=== PATIENT | female | born 1940 | race Caucasian/White ===

== ENCOUNTER 2017-11-17 19:26 | Emergency (ER) | payer MEDICARE, OTHER ==
[~2017-11-17] VITALS: Ht 165.1 cm; Wt 65.8 kg
[~2017-11-17 19:26] MED LIST: ALBU18HF2 INH; ALBU2.5V13 NEB; AMLO2.5T2 PO; GABA-532 PO; HCTZ25T PO; LEVO50TA PO; MOME13HF INH; MORP-64 PO; TRAZ-143 PO
[2017-11-17 19:39] VITALS: BP 135/79
== END 2017-11-17 22:05 | disposition left against medical advice (07) ==
LOC: ER 19:26
DX: R10.9 Unspecified abdominal pain (principal); Z53.21 Procedure and treatment not carried out due to patient leaving prior to being seen by health care provider

== ENCOUNTER 2018-06-17 23:01 | Emergency (ER) | payer MEDICARE, OTHER ==
[~2018-06-17] VITALS: Ht 160 cm; Wt 71.0 kg
[~2018-06-17 23:01] MED LIST changes: -TRAZ-143 PO; +TRAZ-218 PO
[2018-06-17 23:38] LABS: BASOPHILS % (AUTO) 0.6 % (0-1); EOSINOPHILS # (AUTO) 0.1 X10'3 (0-0.9); EOSINOPHILS % (AUTO) 2.1 % (0-6); HEMATOCRIT 39.9 % (35.0-45.0); HEMOGLOBIN 13.5 g/dl (12.0-16.0); LYMPHOCYTES # (AUTO) 2.4 X10'3 (1.1-4.8); LYMPHOCYTES % (AUTO) 37.5 % (21-51); MEAN CORPUSCULAR HEMOGLOBIN 30.9 PG (27.0-31.0); MEAN CORPUSCULAR HGB CONC 33.7 % (33.0-36.5); MEAN CORPUSCULAR VOLUME 91.7 FL (78-98); MEAN PLATELET VOLUME 8.8 FL (7.4-10.4); MONOCYTES # (AUTO) 0.5 X10'3 (0-0.9); MONOCYTES % (AUTO) 8.2 % (2-12); NEUTROPHILS # (AUTO) 3.3 X10'3 (1.8-7.7); NEUTROPHILS % (AUTO) 51.6 % (42-75); PLATELET COUNT 216 X10'3 (140-440); RED BLOOD COUNT 4.35 X10'6 (4.20-5.60); WHITE BLOOD COUNT 6.4 X10'3 (4.5-11.0)
[2018-06-17 23:53] LABS: PARTIAL THROMBOPLASTIN TIME 27 SECONDS (22-32)
[2018-06-17 23:56] LABS: ALBUMIN 3.8 G/DL (3.4-5.0); ALKALINE PHOSPHATASE 68 IU/L (46-116); ANION GAP 6 (8-16); ASPARTATE AMINO TRANSFERASE 14 U/L (10-37); BILIRUBIN,TOTAL 0.2 MG/DL (0.1-1.0); BLOOD UREA NITROGEN 18 MG/DL (7-18); BUN/CREATININE RATIO 28.1 (6.6-38.0); CALCIUM 9.6 MG/DL (8.5-10.1); CHLORIDE 104 MMOL/L (99-107); CREATININE 0.64 MG/DL (0.40-0.90); GLUCOSE 103 MG/DL (70-104); POTASSIUM 3.1 MMOL/L (3.5-5.1); SODIUM 143 MMOL/L (135-145); TOTAL CARBON DIOXIDE 33.2 MMOL/L (24-32); TOTAL PROTEIN 7.7 G/DL (6.4-8.2); eGFR 90 ML/MIN
[2018-06-17 23:57] LABS: ALANINE AMINOTRANSFERASE 21 U/L (12-78)
[2018-06-18 00:47] VITALS: BP 137/74
[2018-06-18] MEDS ORDERED: ALBU6.7H INH (01:34)
[2018-06-18] MEDS ORDERED: dexamethasone 4mg tablet PO ONE (01:35)
[2018-06-18] MEDS ORDERED: albuterol 2.5 MG/3 ML nebule NEB ONE (01:35)
[2018-06-18] MEDS ORDERED: diphenhydrAMINE 25 MG/10 ML UD oral solution PO ONE (01:40)
== END 2018-06-18 02:03 | disposition home or self-care (01) ==
LOC: ER 23:02
DX: J45.909 Unspecified asthma, uncomplicated (principal); I10 Essential (primary) hypertension; K21.9 Gastro-esophageal reflux disease without esophagitis; Z85.3 Personal history of malignant neoplasm of breast; Z90.710 Acquired absence of both cervix and uterus; Z98.890 Other specified postprocedural states; Z88.1 Allergy status to other antibiotic agents; Z88.8 Allergy status to other drugs, medicaments and biological substances; Z91.040 Latex allergy status; Z91.048 Other nonmedicinal substance allergy status; Z79.899 Other long term (current) drug therapy
CPT/HCPCS: 36415; 71045; 80053; 84484; 85025; 85610; 85730; 93005; 94640; 94760; 99284; J8540; Q0163

== ENCOUNTER 2018-09-23 12:48 | Emergency (ER) | payer MEDICARE, OTHER ==
[~2018-09-23] VITALS: Ht 165.1 cm; Wt 76.4 kg
[~2018-09-23 12:48] MED LIST changes: +ALBU6.7H INH
[2018-09-23 12:55] VITALS: BP 123/66
--- NOTE | 2018-09-23 13:08 | NUR ---
patient to the bathroom.
[2018-09-23 13:29] LABS: CLARITY,URINE CLEAR (Clear); COLOR,URINE YELLOW (Yellow); GLUCOSE, URINE NEGATIVE (Neg); KETONES,URINE NEGATIVE (Neg); LEUKOCYTE ESTERASE ,URINE NEGATIVE (Neg); NITRITES, URINE NEGATIVE (Neg); OCCULT BLOOD,URINE SMALL (Neg); PH,URINE 5.5 (4.8-8.0); PROTEIN,URINE NEGATIVE (Neg); UROBILINOGEN,URINE 0.2 E.U/dL (0.2-1.0)
[2018-09-23 13:34] LABS: SQUAMOUS EPITHELIAL CELL,UR FEW /LPF (FEW); UA COLLECTION TYPE CLN CATCH MIDSTREAM
[2018-09-23 13:35] LABS: BACTERIA,URINE FEW /HPF (Neg); WBC,URINE 0-4 /HPF (0-4)
[2018-09-23 13:37] LABS: BASOPHILS % (AUTO) 0.9 % (0-1); EOSINOPHILS # (AUTO) 0.1 X10'3 (0-0.9); EOSINOPHILS % (AUTO) 1.5 % (0-6); HEMATOCRIT 39.2 % (35.0-45.0); HEMOGLOBIN 13.5 g/dl (12.0-16.0); LYMPHOCYTES # (AUTO) 1.9 X10'3 (1.1-4.8); LYMPHOCYTES % (AUTO) 34.9 % (21-51); MEAN CORPUSCULAR HEMOGLOBIN 31.8 PG (27.0-31.0); MEAN CORPUSCULAR HGB CONC 34.6 g/dL (33.0-36.5); MEAN CORPUSCULAR VOLUME 91.9 FL (78-98); MEAN PLATELET VOLUME 8.4 FL (7.4-10.4); MONOCYTES # (AUTO) 0.4 X10'3 (0-0.9); MONOCYTES % (AUTO) 8.2 % (2-12); NEUTROPHILS % (AUTO) 54.5 % (42-75); PLATELET COUNT 264 X10'3 (140-440); RED BLOOD COUNT 4.26 X10'6 (4.20-5.60); RED CELL DISTRIBUTION WIDTH 12.7 % (11.5-14.5); WHITE BLOOD COUNT 5.5 X10'3 (4.5-11.0)
[2018-09-23 13:51] LABS: INR 0.9 INR; PROTHROMBIN TIME 9.6 SECONDS (9.0-12.0)
[2018-09-23 13:52] LABS: ALANINE AMINOTRANSFERASE 25 U/L (12-78); ALBUMIN 3.5 G/DL (3.4-5.0); ALBUMIN/GLOBULIN RATIO 0.9 (1.1-1.5); ALKALINE PHOSPHATASE 72 IU/L (46-116); ANION GAP 6 (8-16); ASPARTATE AMINO TRANSFERASE 18 U/L (10-37); BILIRUBIN,TOTAL 0.3 MG/DL (0.1-1.0); BLOOD UREA NITROGEN 14 MG/DL (7-18); BUN/CREATININE RATIO 25.5 (6.6-38.0); CHLORIDE 107 MMOL/L (99-107); CREATININE 0.55 MG/DL (0.40-0.90); GLUCOSE 100 MG/DL (70-104); POTASSIUM 3.6 MMOL/L (3.5-5.1); SODIUM 141 MMOL/L (135-145); TOTAL CARBON DIOXIDE 28.4 MMOL/L (24-32); TOTAL PROTEIN 7.6 G/DL (6.4-8.2); eGFR > 90 ML/MIN
[2018-09-23 14:00] LABS: AMYLASE 48 U/L (25-115); LIPASE 168 U/L (73-393)
[2018-09-23] MEDS ORDERED: diphenhydrAMINE 50 mg/ml inj IV ONE (14:30)
[2018-09-23] MEDS ORDERED: proCHLORperazine 10 MG/2 ml inj IV ONE (14:30)
[2018-09-23] MEDS ORDERED: ketorolac tromethamine 15mg/ml inj. IV ONE (14:45)
[2018-09-23] MEDS ORDERED: IBUP-1984 PO (14:51)
== END 2018-09-23 15:25 | disposition home or self-care (01) ==
LOC: ER 12:49
DX: R10.814 Left lower quadrant abdominal tenderness (principal); I10 Essential (primary) hypertension; K21.9 Gastro-esophageal reflux disease without esophagitis; J45.909 Unspecified asthma, uncomplicated; Z88.1 Allergy status to other antibiotic agents; Z88.8 Allergy status to other drugs, medicaments and biological substances; Z88.6 Allergy status to analgesic agent; Z91.040 Latex allergy status; Z79.899 Other long term (current) drug therapy; Z90.710 Acquired absence of both cervix and uterus
CPT/HCPCS: 36415; 71045; 74176; 80053; 81001; 82150; 83690; 83880; 84484; 85025; 85610; 93005; 96374; 96375; 99284; J0780; J1200; J1885

== ENCOUNTER 2019-08-04 21:20 | Inpatient (IN) | payer MEDICARE, OTHER ==
[~2019-08-04] VITALS: Ht 160 cm; Wt 80.0 kg
[~2019-08-04 21:20] MED LIST changes: -ALBU6.7H INH; +ALBU6.7H9 INH; -MORP-64 PO; +MORP-92 PO; -TRAZ-218 PO; +TRAZ-251 PO
[2019-08-04] MEDS ORDERED: normal saline 1000ML IV soln IVB ONE ×2 (21:35→22:15)
[2019-08-04 22:07] LABS: BASOPHILS % (AUTO) 0.6 % (0-1); EOSINOPHILS # (AUTO) 0.1 X10'3 (0-0.9); EOSINOPHILS % (AUTO) 1.8 % (0-6); HEMATOCRIT 35.7 % (35.0-45.0); HEMOGLOBIN 12.4 g/dl (12.0-16.0); LYMPHOCYTES # (AUTO) 2.5 X10'3 (1.1-4.8); LYMPHOCYTES % (AUTO) 34.7 % (21-51); MEAN CORPUSCULAR HEMOGLOBIN 32.1 PG (27.0-31.0); MEAN CORPUSCULAR HGB CONC 34.7 g/dL (33.0-36.5); MEAN CORPUSCULAR VOLUME 92.5 FL (78-98); MEAN PLATELET VOLUME 9.2 FL (7.4-10.4); MONOCYTES # (AUTO) 0.4 X10'3 (0-0.9); MONOCYTES % (AUTO) 5.6 % (2-12); NEUTROPHILS # (AUTO) 4.1 X10'3 (1.8-7.7); NEUTROPHILS % (AUTO) 57.3 % (42-75); PLATELET COUNT 218 X10'3 (140-440); RED BLOOD COUNT 3.86 X10'6 (4.20-5.60); RED CELL DISTRIBUTION WIDTH 13.9 % (11.5-14.5); WHITE BLOOD COUNT 7.1 X10'3 (4.5-11.0)
[2019-08-04] MEDS ORDERED: normal saline 1000ml 1,000 ML IVB ONE (22:07)
--- NOTE | 2019-08-04 22:08 | NUR ---
PT HAD GOTTEN BACK FROM CT AND HER BP DECREASED SO A MANUAL BP DONE DR NEGRETE INFORMED AND HE STATED TO GIVE HER A LITER OF FLUIDS. SO ORDERED.
[2019-08-04 22:22] LABS: ALANINE AMINOTRANSFERASE 29 U/L (12-78); ALBUMIN 3.6 G/DL (3.4-5.0); ALBUMIN/GLOBULIN RATIO 1.1 (1.1-1.5); ALKALINE PHOSPHATASE 67 IU/L (46-116); ANION GAP 8 (8-16); ASPARTATE AMINO TRANSFERASE 21 U/L (10-37); BILIRUBIN,TOTAL 0.3 MG/DL (0.1-1.0); BLOOD UREA NITROGEN 23 MG/DL (7-18); BUN/CREATININE RATIO 20.2 (6.6-38.0); CALCIUM 8.8 MG/DL (8.5-10.1); CHLORIDE 105 MMOL/L (99-107); CREATININE 1.14 MG/DL (0.40-0.90); GLUCOSE 108 MG/DL (70-104); POTASSIUM 3.4 MMOL/L (3.5-5.1); SODIUM 140 MMOL/L (135-145); TOTAL CARBON DIOXIDE 26.9 MMOL/L (24-32); TOTAL PROTEIN 6.8 G/DL (6.4-8.2); eGFR 46 ML/MIN
[2019-08-04] MEDS ORDERED: LACT10SO57 PO (23:01)
[2019-08-04] MEDS ORDERED: FLUO10CA28 PO (23:01)
[2019-08-04] MEDS ORDERED: GABA-532 PO (23:01)
[2019-08-04] MEDS ORDERED: OMEP-50 PO (23:01)
[2019-08-04 23:08] LABS: CLARITY,URINE CLEAR (Clear); COLOR,URINE YELLOW (Yellow); GLUCOSE, URINE NEGATIVE (Neg); KETONES,URINE NEGATIVE (Neg); LEUKOCYTE ESTERASE ,URINE NEGATIVE (Neg); NITRITES, URINE NEGATIVE (Neg); OCCULT BLOOD,URINE TRACE-INTACT (Neg); PROTEIN,URINE NEGATIVE (Neg); UROBILINOGEN,URINE 0.2 E.U/dL (0.2-1.0)
[2019-08-04 23:23] LABS: UA COLLECTION TYPE STRAIGHT CATH
[2019-08-04 23:24] LABS: BACTERIA,URINE FEW /HPF (Neg); SQUAMOUS EPITHELIAL CELL,UR FEW /LPF (FEW); WBC,URINE NONE SEEN /HPF (0-4)
[2019-08-05] MEDS ORDERED: albuterol 2.5 MG/3 ML nebule NEB PRN (01:35)
--- NOTE | 2019-08-05 01:50 | NUR ---
I took report from Rachid CASIANO from the ER and will give report to Rachid CASIANO on Ortho who will be taking care of patient on the Ortho floor.
[2019-08-05 02:30] VITALS: BP 105/63
[2019-08-05] MEDS: oxyCODONE/APAP 5-325mg tablet PO PRN ×3 (02:57→19:32)
[2019-08-05] MEDS: normal saline 1000ml 1,000 ML IV SCH ×3 (02:58→21:28)
[2019-08-05] MEDS: albuterol 2.5 MG/3 ML nebule NEB SCH ×4 (03:02→21:00)
[2019-08-05] MEDS ORDERED: potassium Cl 20 mEq SR tablet PO PRN (04:50)
[2019-08-05] MEDS ORDERED: potassium CL 10mEq/100ml bag 100 ML IV PRN (04:50)
[2019-08-05] MEDS: K and/or MAG REPLACEMENT MC SCH ×3 (04:50→20:00)
[2019-08-05 05:09] LABS: POTASSIUM 3.9 MMOL/L (3.5-5.1)
[2019-08-05 06:00] VITALS: BP 101/53
[2019-08-05] MEDS: pantoprazole 40mg Tablet.DR PO SCH (08:46)
[2019-08-05] MEDS: levoTHYROXINE 25mcg tablet PO SCH (08:47)
[2019-08-05] MEDS: FLUoxetine 10mg capsule PO SCH (08:47)
[2019-08-05] MEDS: budesonide 0.5mg/2ml UD nebule IH SCH ×2 (09:48→21:00)
[2019-08-05 10:00] VITALS: BP 133/60
[2019-08-05] MEDS: CefTRIAXone 2gm/D5W 50ml 50 ML IV SCH (15:36)
[2019-08-05 18:00] VITALS: BP 118/56
--- NOTE | 2019-08-05 18:38 | NUR ---
Problems reprioritized. Patient report given, questions answered & plan of care reviewed with Winsome.
[2019-08-05] MEDS: docusate sod 100mg capsule PO SCH (19:33)
[2019-08-05 22:00] VITALS: BP 141/82
[2019-08-06] MEDS: oxyCODONE/APAP 5-325mg tablet PO PRN ×4 (01:23→22:30)
[2019-08-06] MEDS: albuterol 2.5 MG/3 ML nebule NEB SCH ×4 (02:09→21:01)
[2019-08-06 06:00] VITALS: BP 147/80
[2019-08-06 06:39] LABS: BASOPHILS % (AUTO) 0.5 % (0-1); EOSINOPHILS # (AUTO) 0.1 X10'3 (0-0.9); EOSINOPHILS % (AUTO) 2.1 % (0-6); LYMPHOCYTES # (AUTO) 2.4 X10'3 (1.1-4.8); LYMPHOCYTES % (AUTO) 33.5 % (21-51); MEAN CORPUSCULAR HEMOGLOBIN 31.6 PG (27.0-31.0); MEAN CORPUSCULAR HGB CONC 34.4 g/dL (33.0-36.5); MEAN CORPUSCULAR VOLUME 91.8 FL (78-98); MEAN PLATELET VOLUME 9.1 FL (7.4-10.4); MONOCYTES # (AUTO) 0.5 X10'3 (0-0.9); MONOCYTES % (AUTO) 7.3 % (2-12); NEUTROPHILS % (AUTO) 56.6 % (42-75); PLATELET COUNT 182 X10'3 (140-440); RED BLOOD COUNT 3.81 X10'6 (4.20-5.60); WHITE BLOOD COUNT 7.1 X10'3 (4.5-11.0)
[2019-08-06 06:55] LABS: ALANINE AMINOTRANSFERASE 25 U/L (12-78); ALBUMIN 3.1 G/DL (3.4-5.0); ALKALINE PHOSPHATASE 60 IU/L (46-116); ANION GAP 9 (8-16); ASPARTATE AMINO TRANSFERASE 17 U/L (10-37); BILIRUBIN,TOTAL 0.3 MG/DL (0.1-1.0); BLOOD UREA NITROGEN 6 MG/DL (7-18); BUN/CREATININE RATIO 11.3 (6.6-38.0); CALCIUM 8.4 MG/DL (8.5-10.1); CHLORIDE 109 MMOL/L (99-107); CREATININE 0.53 MG/DL (0.40-0.90); GLUCOSE 90 MG/DL (70-104); SODIUM 144 MMOL/L (135-145); TOTAL CARBON DIOXIDE 25.8 MMOL/L (24-32); TOTAL PROTEIN 6.3 G/DL (6.4-8.2); eGFR > 90 ML/MIN
[2019-08-06 07:23] LABS: POTASSIUM 2.9 MMOL/L (3.5-5.1)
[2019-08-06] MEDS: budesonide 0.5mg/2ml UD nebule IH SCH ×2 (08:00→21:01)
[2019-08-06] MEDS: K and/or MAG REPLACEMENT MC SCH ×2 (08:00→20:00)
[2019-08-06] MEDS: ondansetron/PF 4mg/2ml inj IV PRN ×2 (08:12→18:50)
[2019-08-06] MEDS: normal saline 1000ml 1,000 ML IV SCH ×3 (08:13→18:50)
[2019-08-06] MEDS: docusate sod 100mg capsule PO SCH ×2 (08:14→19:15)
[2019-08-06] MEDS: CefTRIAXone 2gm/D5W 50ml 50 ML IV SCH (08:14)
[2019-08-06] MEDS: pantoprazole 40mg Tablet.DR PO SCH (08:15)
[2019-08-06] MEDS: levoTHYROXINE 25mcg tablet PO SCH (08:15)
[2019-08-06] MEDS: FLUoxetine 10mg capsule PO SCH (08:15)
[2019-08-06] MEDS: potassium Cl 20 mEq SR tablet PO PRN ×3 (08:21→18:49)
[2019-08-06 10:00] VITALS: BP 166/77
[2019-08-06] MEDS: acetaminophen 325mg tablet PO PRN (15:38)
[2019-08-06 18:00] VITALS: BP 141/67
--- NOTE | 2019-08-06 18:05 | NUR ---
Received patient report from STEPHENIE Thomas. Assumed patient care.
[2019-08-06] MEDS: lactobacillus rhamnosus 10,000 MMU CELLS/CAPSULE PO SCH (19:15)
[2019-08-06 22:00] VITALS: BP 132/56
[2019-08-07] MEDS: acetaminophen 325mg tablet PO PRN ×3 (00:20→19:52)
[2019-08-07] MEDS: albuterol 2.5 MG/3 ML nebule NEB SCH ×4 (03:00→19:59)
[2019-08-07] MEDS: normal saline 1000ml 1,000 ML IV SCH ×2 (04:00→15:55)
[2019-08-07] MEDS: oxyCODONE/APAP 5-325mg tablet PO PRN ×4 (04:38→22:34)
[2019-08-07 06:00] VITALS: BP 135/64
--- NOTE | 2019-08-07 06:09 | NUR ---
Patient report given, questions answered and plan of care reviewed with STEPHENIE Tucker.
[2019-08-07 06:23] LABS: BASOPHILS % (AUTO) 0.5 % (0-1); EOSINOPHILS # (AUTO) 0.2 X10'3 (0-0.9); EOSINOPHILS % (AUTO) 2.9 % (0-6); HEMATOCRIT 35.6 % (35.0-45.0); HEMOGLOBIN 12.1 g/dl (12.0-16.0); LYMPHOCYTES # (AUTO) 1.9 X10'3 (1.1-4.8); MEAN CORPUSCULAR HEMOGLOBIN 31.6 PG (27.0-31.0); MEAN CORPUSCULAR HGB CONC 34.1 g/dL (33.0-36.5); MEAN CORPUSCULAR VOLUME 92.7 FL (78-98); MEAN PLATELET VOLUME 9.2 FL (7.4-10.4); MONOCYTES # (AUTO) 0.4 X10'3 (0-0.9); MONOCYTES % (AUTO) 7.1 % (2-12); NEUTROPHILS # (AUTO) 3.6 X10'3 (1.8-7.7); NEUTROPHILS % (AUTO) 58.5 % (42-75); PLATELET COUNT 190 X10'3 (140-440); RED BLOOD COUNT 3.83 X10'6 (4.20-5.60); RED CELL DISTRIBUTION WIDTH 13.7 % (11.5-14.5); WHITE BLOOD COUNT 6.1 X10'3 (4.5-11.0)
[2019-08-07 06:40] LABS: ALANINE AMINOTRANSFERASE 26 U/L (12-78); ALBUMIN 3.1 G/DL (3.4-5.0); ALBUMIN/GLOBULIN RATIO 0.9 (1.1-1.5); ALKALINE PHOSPHATASE 62 IU/L (46-116); ANION GAP 8 (8-16); ASPARTATE AMINO TRANSFERASE 15 U/L (10-37); BILIRUBIN,TOTAL 0.4 MG/DL (0.1-1.0); BLOOD UREA NITROGEN 6 MG/DL (7-18); BUN/CREATININE RATIO 9.7 (6.6-38.0); CALCIUM 8.6 MG/DL (8.5-10.1); CHLORIDE 108 MMOL/L (99-107); CREATININE 0.62 MG/DL (0.40-0.90); GLUCOSE 99 MG/DL (70-104); POTASSIUM 3.6 MMOL/L (3.5-5.1); SODIUM 143 MMOL/L (135-145); TOTAL CARBON DIOXIDE 27.1 MMOL/L (24-32); TOTAL PROTEIN 6.6 G/DL (6.4-8.2); eGFR > 90 ML/MIN
[2019-08-07] MEDS: CefTRIAXone 2gm/D5W 50ml 50 ML IV SCH (07:53)
[2019-08-07] MEDS: levoTHYROXINE 25mcg tablet PO SCH (07:55)
[2019-08-07] MEDS: lactobacillus rhamnosus 10,000 MMU CELLS/CAPSULE PO SCH ×2 (07:55→19:49)
[2019-08-07] MEDS: FLUoxetine 10mg capsule PO SCH (07:55)
[2019-08-07] MEDS: docusate sod 100mg capsule PO SCH ×2 (07:55→19:49)
[2019-08-07] MEDS: pantoprazole 40mg Tablet.DR PO SCH (07:56)
[2019-08-07] MEDS: K and/or MAG REPLACEMENT MC SCH ×2 (08:00→20:00)
[2019-08-07] MEDS: budesonide 0.5mg/2ml UD nebule IH SCH ×2 (08:50→19:59)
[2019-08-07 10:12] VITALS: BP 140/65
--- NOTE | 2019-08-07 13:10 | NUR ---
EVEN THOUGH HER PAIN WAS A 6-7 SHE ONLY WANTED TYLENOL.
[2019-08-07 18:00] VITALS: BP 151/77
--- NOTE | 2019-08-07 18:00 | NUR ---
Received patient report from STEPHENIE Tucker. Assumed patient care.
[2019-08-07 22:00] VITALS: BP 120/60
[2019-08-08] MEDS: albuterol 2.5 MG/3 ML nebule NEB SCH ×2 (03:00→09:35)
[2019-08-08] MEDS: acetaminophen 325mg tablet PO PRN (03:02)
[2019-08-08] MEDS: oxyCODONE/APAP 5-325mg tablet PO PRN ×2 (05:19→12:47)
[2019-08-08 05:50] VITALS: BP 152/76
--- NOTE | 2019-08-08 06:01 | NUR ---
Patient report given, questions answered and plan of care reviewed with STEPHENIE Tucker.
[2019-08-08 06:10] LABS: BASOPHILS % (AUTO) 0.7 % (0-1); EOSINOPHILS # (AUTO) 0.2 X10'3 (0-0.9); EOSINOPHILS % (AUTO) 2.3 % (0-6); HEMATOCRIT 35.9 % (35.0-45.0); HEMOGLOBIN 12.4 g/dl (12.0-16.0); LYMPHOCYTES # (AUTO) 2.2 X10'3 (1.1-4.8); LYMPHOCYTES % (AUTO) 32.2 % (21-51); MEAN CORPUSCULAR HEMOGLOBIN 31.8 PG (27.0-31.0); MEAN CORPUSCULAR HGB CONC 34.4 g/dL (33.0-36.5); MEAN CORPUSCULAR VOLUME 92.5 FL (78-98); MONOCYTES # (AUTO) 0.5 X10'3 (0-0.9); MONOCYTES % (AUTO) 6.8 % (2-12); PLATELET COUNT 196 X10'3 (140-440); RED BLOOD COUNT 3.88 X10'6 (4.20-5.60); RED CELL DISTRIBUTION WIDTH 13.7 % (11.5-14.5); WHITE BLOOD COUNT 6.9 X10'3 (4.5-11.0)
[2019-08-08 06:38] LABS: ALANINE AMINOTRANSFERASE 29 U/L (12-78); ALBUMIN 3.2 G/DL (3.4-5.0); ALBUMIN/GLOBULIN RATIO 0.9 (1.1-1.5); ALKALINE PHOSPHATASE 63 IU/L (46-116); ANION GAP 6 (8-16); ASPARTATE AMINO TRANSFERASE 17 U/L (10-37); BILIRUBIN,TOTAL 0.5 MG/DL (0.1-1.0); BLOOD UREA NITROGEN 8 MG/DL (7-18); BUN/CREATININE RATIO 13.1 (6.6-38.0); CHLORIDE 108 MMOL/L (99-107); CREATININE 0.61 MG/DL (0.40-0.90); GLUCOSE 100 MG/DL (70-104); POTASSIUM 3.8 MMOL/L (3.5-5.1); SODIUM 142 MMOL/L (135-145); TOTAL CARBON DIOXIDE 28.4 MMOL/L (24-32); TOTAL PROTEIN 6.8 G/DL (6.4-8.2); eGFR > 90 ML/MIN
[2019-08-08] MEDS: K and/or MAG REPLACEMENT MC SCH (07:25)
[2019-08-08] MEDS: CefTRIAXone 2gm/D5W 50ml 50 ML IV SCH (08:23)
[2019-08-08] MEDS: pantoprazole 40mg Tablet.DR PO SCH (08:24)
[2019-08-08] MEDS: FLUoxetine 10mg capsule PO SCH (08:24)
[2019-08-08] MEDS: docusate sod 100mg capsule PO SCH (08:24)
[2019-08-08] MEDS: lactobacillus rhamnosus 10,000 MMU CELLS/CAPSULE PO SCH (08:24)
[2019-08-08] MEDS: levoTHYROXINE 25mcg tablet PO SCH (08:24)
[2019-08-08] MEDS: normal saline 1000ml 1,000 ML IV SCH (08:24)
[2019-08-08] MEDS: budesonide 0.5mg/2ml UD nebule IH SCH (09:36)
[2019-08-08 09:57] VITALS: BP 142/67
--- NOTE | 2019-08-08 10:53 | NUR ---
pt very concerned about her BP this AM with systolic 155. Pt states "it hasn't been that high in years. I'm usually in the 110's. I'm not taking my BP meds." Educated pt on why she is not receiving her BP meds now d/t hypotension. Pt also in 03/03 pain when BP elevated. Once Percocet started working SBP decreased to 140's. Dr. Cook aware and stated pt to be d/c'd today.
[2019-08-08] MEDS ORDERED: LEVO750T21 PO (12:38)
--- NOTE | 2019-08-10 09:44 | NUR ---
Case management DC follow up: spoke to pt via telephone: Pt states she is doing great today. Denies dizziness, LUND, emergent pain, cp, SOB, NV at this time. verbalizes understands of medications and why prescribed, all needs met, questions answered at DC. [facility] will be at pt home at 1100 to assess needs, Pt called PCP/Dr Hitchcock to give update, and they will retrieve records. Pt does not have follow up appt yet, acknowledges that a follow up is necessary. No further questions at this time.
== END 2019-08-08 13:35 | disposition home health service (06) | DRG 88 ==
LOC: ER 21:21 → ED HOLD 08-05 01:28 → ORTHO 4S 08-05 02:10
PROVIDERS: ADMIT Internal Medicine; ATTEND Family Medicine
DX: S06.0X1A Concussion with loss of consciousness of 30 minutes or less, initial encounter (principal); G92 Toxic encephalopathy; R78.81 Bacteremia; S00.83XA Contusion of other part of head, initial encounter; R55 Syncope and collapse; I95.9 Hypotension, unspecified; M79.7 Fibromyalgia; I10 Essential (primary) hypertension; E87.6 Hypokalemia; E03.9 Hypothyroidism, unspecified; G89.4 Chronic pain syndrome; J45.909 Unspecified asthma, uncomplicated; Z90.710 Acquired absence of both cervix and uterus; Z85.3 Personal history of malignant neoplasm of breast; Z88.8 Allergy status to other drugs, medicaments and biological substances; W18.39XA Other fall on same level, initial encounter; Y93.89 Activity, other specified; Y92.89 Other specified places as the place of occurrence of the external cause; Y99.8 Other external cause status; X58.XXXA Exposure to other specified factors, initial encounter
CPT/HCPCS: 36415; 70450; 71045; 80053; 81001; 83605; 83735; 83880; 84132; 84145; 84443; 84484; 85025; 87040; 87077; 87081; 87186; 93005; 94640; 94760; 96360; 99285; G0378; J0696; J2405; J7030; J7626

== ENCOUNTER 2020-06-03 01:32 | Inpatient (IN) | payer MEDICARE, OTHER ==
[~2020-06-03] VITALS: Ht 165.1 cm; Wt 68.0 kg
[~2020-06-03 01:32] MED LIST changes: -ALBU2.5V13 NEB; -ALBU6.7H9 INH; -AMLO2.5T2 PO; +LACT10SO57 PO; -MORP-92 PO; +OMEP-50 PO; -TRAZ-251 PO
[2020-06-03] MEDS ORDERED: ondansetron/PF 4mg/2ml inj IV ONE (01:35)
[2020-06-03] MEDS ORDERED: normal saline 1000ML IV soln IVB ONE (01:35)
--- NOTE | 2020-06-03 01:42 | NUR ---
ETOH use in the last 24 hours cant remember. Reports Kahlua and coffee
[2020-06-03] MEDS: morphine 4 MG/ML inj SYRINge IV PRN ×3 (01:56→05:53)
--- NOTE | 2020-06-03 02:00 | NUR ---
To CT via [facility]
[2020-06-03 02:07] LABS: BASOPHILS % (AUTO) 0.1 % (0-1); EOSINOPHILS % (AUTO) 0 % (0-6); HEMATOCRIT 39.9 % (35.0-45.0); HEMOGLOBIN 13.4 g/dl (12.0-16.0); LYMPHOCYTES % (AUTO) 6.5 % (21-51); MEAN CORPUSCULAR HEMOGLOBIN 31.7 PG (27.0-31.0); MEAN CORPUSCULAR HGB CONC 33.5 g/dL (33.0-36.5); MEAN CORPUSCULAR VOLUME 94.7 FL (78-98); MEAN PLATELET VOLUME 8.7 FL (7.4-10.4); MONOCYTES # (AUTO) 0.6 X10'3 (0-0.9); MONOCYTES % (AUTO) 3.7 % (2-12); NEUTROPHILS % (AUTO) 89.7 % (42-75); PLATELET COUNT 215 X10'3 (140-440); RED BLOOD COUNT 4.22 X10'6 (4.20-5.60); RED CELL DISTRIBUTION WIDTH 13.5 % (11.5-14.5); WHITE BLOOD COUNT 15.6 X10'3 (4.5-11.0)
[2020-06-03 02:23] LABS: ALANINE AMINOTRANSFERASE 18 U/L (12-78); ALBUMIN 4.4 G/DL (3.4-5.0); ALKALINE PHOSPHATASE 72 IU/L (46-116); ANION GAP 12 (8-16); ASPARTATE AMINO TRANSFERASE 17 U/L (10-37); BILIRUBIN,TOTAL 0.6 MG/DL (0.1-1.0); BLOOD UREA NITROGEN 18 MG/DL (7-18); BUN/CREATININE RATIO 25.4 (6.6-38.0); CALCIUM 9.4 MG/DL (8.5-10.1); CHLORIDE 102 MMOL/L (99-107); CREATININE 0.71 MG/DL (0.40-0.90); GLUCOSE 168 MG/DL (70-104); LIPASE 96 U/L (73-393); SODIUM 137 MMOL/L (135-145); TOTAL CARBON DIOXIDE 23.1 MMOL/L (24-32); TOTAL PROTEIN 8.7 G/DL (6.4-8.2); eGFR 80 ML/MIN
--- NOTE | 2020-06-03 02:24 | NUR ---
Venessa acosta in [facility] - 06/03/20 at 0224 by JEANNE taxi called for transport to [place] ETA 30 minutes
[2020-06-03 02:33] LABS: POTASSIUM 2.6 MMOL/L (3.5-5.1)
[2020-06-03] MEDS ORDERED: HYDR-3965 PO (02:35)
[2020-06-03] MEDS ORDERED: NAPR-56 PO (02:35)
[2020-06-03] MEDS ORDERED: VALS160T30 PO (02:35)
[2020-06-03] MEDS ORDERED: SYN0.088T PO (02:35)
--- NOTE | 2020-06-03 02:35 | NUR ---
reports fibromyalgia pain
[2020-06-03] MEDS ORDERED: potassium Cl 20 mEq SR tablet PO ONE (02:40)
[2020-06-03] MEDS ORDERED: CefTRIAXone 2gm/D5W 50ml BAG 50 ML IV ONE (02:40)
[2020-06-03] MEDS ORDERED: normal saline 1000ML IV soln IV ONE (02:40)
[2020-06-03] MEDS: magnesium 2GM in 50ml NS 50 ML IV SCH ×2 (03:00→04:50)
[2020-06-03 03:20] LABS: CLARITY,URINE CLEAR (Clear); COLOR,URINE YELLOW (Yellow); GLUCOSE, URINE 100 mg/dl (Neg); KETONES,URINE 15 mg/dl (Neg); LEUKOCYTE ESTERASE ,URINE NEGATIVE (Neg); NITRITES, URINE NEGATIVE (Neg); OCCULT BLOOD,URINE MODERATE (Neg); PH,URINE 7.5 (4.8-8.0); PROTEIN,URINE 100 mg/dl (Neg); UROBILINOGEN,URINE 0.2 E.U/dL (0.2-1.0)
[2020-06-03 03:26] LABS: UA COLLECTION TYPE VOIDED
[2020-06-03 03:29] LABS: BACTERIA,URINE 1+ /HPF (Neg); MUCUS STRANDS FEW /LPF (Neg); RBC,URINE 20-50 /HPF (0-2); SQUAMOUS EPITHELIAL CELL,UR FEW /LPF (FEW); WBC,URINE 0-4 /HPF (0-4)
--- NOTE | 2020-06-03 05:03 | NUR ---
UP TO BEDSIDE COMMODE
[2020-06-03] MEDS ORDERED: magnesium 4gm in 100ml NS 100 ML IV PRN (05:35)
[2020-06-03] MEDS ORDERED: potassium CL 10mEq/100ml bag 100 ML IV PRN ×2 (05:35)
[2020-06-03] MEDS ORDERED: potassium Cl 20 mEq SR tablet PO PRN (05:35)
[2020-06-03] MEDS ORDERED: magnesium 2GM in 50ml NS 50 ML IV PRN (05:35)
[2020-06-03] MEDS ORDERED: magnesium Cl slow-release 64mg tablet PO PRN (05:35)
[2020-06-03] MEDS ORDERED: mag hydrox/Alum hydrox/simeth 30ml oral suspension PO PRN (05:35)
[2020-06-03] MEDS ORDERED: HYDROmorphone inj. 0.5 MG/0.5 ML DISP.SYRIN IV PRN ×2 (05:35→14:05)
[2020-06-03] MEDS ORDERED: magnesium hydroxide 30ml (MOM) UD suspension PO PRN (05:35)
[2020-06-03] MEDS ORDERED: acetaminophen 325mg tablet PO PRN ×2 (05:35)
[2020-06-03] MEDS ORDERED: ondansetron/PF 4mg/2ml inj IV PRN (05:35)
[2020-06-03] MEDS: potassium Cl 20mEq in NS 1,000 ML IV SCH ×2 (05:54→15:45)
[2020-06-03] MEDS ORDERED: albuterol 2.5 MG/3 ML nebule NEB PRN (06:10)
--- NOTE | 2020-06-03 06:25 | NUR ---
MEDICATIONS TO PHARMACY
[2020-06-03] MEDS: budesonide 0.5mg/2ml UD nebule IH SCH ×2 (07:10→20:40)
[2020-06-03] MEDS: albuterol 2.5 MG/3 ML nebule NEB SCH ×2 (07:10→20:41)
[2020-06-03] MEDS: pantoprazole 40mg Tablet.DR PO SCH (07:29)
[2020-06-03] MEDS: levoTHYROXINE 25mcg tablet PO SCH (07:30)
[2020-06-03] MEDS: K and/or MAG REPLACEMENT MC SCH ×2 (08:00→19:45)
[2020-06-03] MEDS ORDERED: levoTHYROXINE 88mcg tablet PO SCH (08:00)
[2020-06-03] MEDS ORDERED: non-formulary drug (Mometasone/Formoterol (Dulera 200 Mcg/5 Mcg Inhaler) 2 PUFFS) INH SCH (08:00)
[2020-06-03] MEDS: HYDROchlorothiazide 12.5mg capsule PO SCH (08:00)
[2020-06-03] MEDS ORDERED: iohexol 300mg/ml 100ml inj. ONE (09:00)
--- NOTE | 2020-06-03 09:58 | NUR ---
DAUGHTER FLORECITA YANDEL [phone]
[2020-06-03] MEDS: HYDROcodone/acetaminophen 10/325mg tab PO PRN ×3 (10:07→23:03)
[2020-06-03] MEDS: losartan 50mg tablet PO SCH (10:09)
[2020-06-03] MEDS: gabapentin 300mg capsule PO SCH ×3 (10:11→21:00)
[2020-06-03] MEDS: heparin, porcine 5000 units/ml vial SQ SCH ×2 (10:12→19:44)
--- NOTE | 2020-06-03 10:13 | NUR ---
CALLED ER FOR REPORT/ CHARGE STATES NURSE IN WITH PT GIVING MEDS, SHE WILL CALL ME BACK.
[2020-06-03] MEDS: piperacillin/tazo 3.375gm/50ml 50 ML IV SCH ×3 (10:18→23:23)
[2020-06-03 11:00] VITALS: BP 161/84
--- NOTE | 2020-06-03 13:59 | NUR ---
POTASSIUM REPLAEMENT DONE IN ER. ORDERED STAT RECHECK. WAITING FOR RESULTS
[2020-06-03] MEDS: HYDROmorphone inj. 0.5 MG/0.5 ML DISP.SYRIN IV PRN ×2 (14:56→19:44)
--- NOTE | 2020-06-03 14:59 | NUR ---
HAVING TROUBLE MANAGING PT'S PAIN. SHE STATES SHE TAKES 3-4 NORCO EVERYDAY. GAVE DILAUDID 1MG
[2020-06-03 15:00] VITALS: BP 138/73
--- NOTE | 2020-06-03 15:52 | NUR ---
WENT TO [facility], ABX NOT AVAILABLE WILL CHECK QWITH PHARMACY. MAY BE HUNG LATE
[2020-06-03 18:00] VITALS: BP 169/94
--- NOTE | 2020-06-03 18:15 | NUR ---
RECEIVED REPORT FROM SHEA CASIANO AND ASSUMED PATIENT CARE
--- NOTE | 2020-06-03 18:19 | NUR ---
Problems reprioritized. Patient report given, questions answered & plan of care reviewed with JANIE CASIANO.
--- NOTE | 2020-06-03 19:09 | NUR ---
REPORT GIVEN TO MERCEDES CASIANO
--- NOTE | 2020-06-03 19:18 | NUR ---
Patient in room PCU 3017. I have received report from Vero CASIANO and had the opportunity to ask questions and assume patient care.
[2020-06-03] MEDS: lactobacillus rhamnosus 10,000 MMU CELLS/CAPSULE PO SCH (19:45)
[2020-06-03] MEDS ORDERED: temazepam 15mg capsule PO PRN (21:00)
[2020-06-04 00:03] VITALS: BP 184/74
[2020-06-04] MEDS: hydrALAZINE 20mg/ml inj. IV PRN (00:15)
[2020-06-04] MEDS: HYDROmorphone inj. 0.5 MG/0.5 ML DISP.SYRIN IV PRN ×5 (00:32→22:30)
[2020-06-04 01:48] VITALS: BP 172/82
[2020-06-04] MEDS: albuterol 2.5 MG/3 ML nebule NEB SCH ×4 (02:58→20:40)
[2020-06-04] MEDS: potassium Cl 20mEq in NS 1,000 ML IV SCH ×3 (03:01→14:19)
[2020-06-04 06:00] VITALS: BP 172/89
[2020-06-04 06:00] LABS: BASOPHILS % (AUTO) 0.1 % (0-1); EOSINOPHILS % (AUTO) 0 % (0-6); HEMATOCRIT 37.8 % (35.0-45.0); HEMOGLOBIN 13.1 g/dl (12.0-16.0); LYMPHOCYTES # (AUTO) 1.4 X10'3 (1.1-4.8); LYMPHOCYTES % (AUTO) 8.1 % (21-51); MEAN CORPUSCULAR HEMOGLOBIN 32.7 PG (27.0-31.0); MEAN CORPUSCULAR HGB CONC 34.7 g/dL (33.0-36.5); MEAN CORPUSCULAR VOLUME 94.3 FL (78-98); MEAN PLATELET VOLUME 9.1 FL (7.4-10.4); MONOCYTES # (AUTO) 1.4 X10'3 (0-0.9); NEUTROPHILS # (AUTO) 14.2 X10'3 (1.8-7.7); NEUTROPHILS % (AUTO) 83.8 % (42-75); PLATELET COUNT 269 X10'3 (140-440); RED BLOOD COUNT 4.01 X10'6 (4.20-5.60); RED CELL DISTRIBUTION WIDTH 13.6 % (11.5-14.5)
[2020-06-04 06:02] LABS: ALANINE AMINOTRANSFERASE 20 U/L (12-78); ALBUMIN 3.9 G/DL (3.4-5.0); ALBUMIN/GLOBULIN RATIO 0.9 (1.1-1.5); ALKALINE PHOSPHATASE 63 IU/L (46-116); ANION GAP 14 (8-16); ASPARTATE AMINO TRANSFERASE 18 U/L (10-37); BLOOD UREA NITROGEN 11 MG/DL (7-18); BUN/CREATININE RATIO 16.7 (6.6-38.0); CHLORIDE 105 MMOL/L (99-107); CREATININE 0.66 MG/DL (0.40-0.90); GLUCOSE 162 MG/DL (70-104); SODIUM 141 MMOL/L (135-145); TOTAL CARBON DIOXIDE 22.3 MMOL/L (24-32); TOTAL PROTEIN 8.2 G/DL (6.4-8.2); eGFR 87 ML/MIN
[2020-06-04 06:06] LABS: POTASSIUM 2.9 MMOL/L (3.5-5.1)
--- NOTE | 2020-06-04 06:16 | NUR ---
Problems reprioritized. Patient report given, questions answered & plan of care reviewed with Bettina CASIANO.
--- NOTE | 2020-06-04 06:28 | NUR ---
Patient in room PCU 3017. I have received report from Madison and had the opportunity to ask questions and assume patient care.
[2020-06-04] MEDS: HYDROcodone/acetaminophen 10/325mg tab PO PRN ×3 (07:14→18:59)
[2020-06-04] MEDS: potassium Cl 20 mEq SR tablet PO PRN ×2 (07:18→19:05)
[2020-06-04] MEDS: gabapentin 300mg capsule PO SCH ×3 (07:19→22:30)
[2020-06-04] MEDS: levoTHYROXINE 25mcg tablet PO SCH (07:20)
[2020-06-04] MEDS: HYDROchlorothiazide 12.5mg capsule PO SCH (07:21)
[2020-06-04] MEDS: losartan 50mg tablet PO SCH (07:21)
[2020-06-04] MEDS: lactobacillus rhamnosus 10,000 MMU CELLS/CAPSULE PO SCH ×2 (07:21→18:59)
[2020-06-04] MEDS: piperacillin/tazo 3.375gm/50ml 50 ML IV SCH ×2 (07:22→16:22)
[2020-06-04] MEDS: pantoprazole 40mg Tablet.DR PO SCH (07:22)
[2020-06-04] MEDS: heparin, porcine 5000 units/ml vial SQ SCH ×2 (07:29→18:59)
[2020-06-04] MEDS: K and/or MAG REPLACEMENT MC SCH ×2 (07:30→18:58)
[2020-06-04] MEDS: budesonide 0.5mg/2ml UD nebule IH SCH ×2 (08:00→20:40)
[2020-06-04 10:00] VITALS: BP 117/50
--- NOTE | 2020-06-04 10:39 | NUR ---
Patients was pacing side to side saying the norco wasn't helping her. I waited two hours after giving norco to see if there were some relief after no relief was achieved I gave pt dilaudid 1mg and Hr came down patient now more comfortable. Patient neighbor made comment that she makes more noise when people are around to get more pain meds. Will continue to monitor.
--- NOTE | 2020-06-04 12:49 | NUR ---
Page Sent promotional table spacer PAGER ID: [phone] MESSAGE: [phone] Luzmaria Raymond Patient seems to be going in and out of afib. When she sits up her heart rate goes up to 140 then when she lays it goes back down to 102. #[phone] Bettina
--- NOTE | 2020-06-04 13:49 | NUR ---
promotional table spacer promotional table spacer Page Sent promotional table spacer PAGER ID: [phone] MESSAGE: [id number] Lia Pt came up from ED on Heparin. Pharmacy wants my heparin drip stopped now that order is over 12 hours. Please call #[phone] Bettina Addendum: 06/04/20 at 1349 by Zachary Gann RN WRONG PT
[2020-06-04] MEDS ORDERED: diphenhydrAMINE 25mg capsule PO PRN (14:00)
[2020-06-04 17:32] VITALS: BP 104/54
--- NOTE | 2020-06-04 18:25 | NUR ---
Problems reprioritized. Patient report given, questions answered & plan of care reviewed with Vero.
[2020-06-04 22:00] VITALS: BP 136/90
[2020-06-05] MEDS: piperacillin/tazo 3.375gm/50ml 50 ML IV SCH ×4 (00:07→23:26)
[2020-06-05] MEDS: potassium Cl 20 mEq SR tablet PO PRN (00:07)
[2020-06-05] MEDS: HYDROcodone/acetaminophen 10/325mg tab PO PRN ×4 (00:07→21:41)
[2020-06-05] MEDS: potassium Cl 20mEq in NS 1,000 ML IV SCH ×3 (00:48→23:28)
[2020-06-05 02:00] VITALS: BP 136/86
[2020-06-05] MEDS: HYDROmorphone inj. 0.5 MG/0.5 ML DISP.SYRIN IV PRN ×3 (02:32→19:03)
[2020-06-05] MEDS: albuterol 2.5 MG/3 ML nebule NEB SCH ×4 (03:04→21:11)
--- NOTE | 2020-06-05 06:20 | NUR ---
Problems reprioritized. Patient report given, questions answered & plan of care reviewed with Roro CASIANO.
--- NOTE | 2020-06-05 06:33 | NUR ---
Patient in room PCU 3017. I have received report from STEPHENIE Pham and had the opportunity to ask questions and assume patient care. Pt awake at change of shift, resting comfortably.
[2020-06-05 07:00] VITALS: BP 122/73
[2020-06-05 07:43] LABS: BASOPHILS % (AUTO) 0.2 % (0-1); EOSINOPHILS % (AUTO) 0 % (0-6); HEMATOCRIT 40.9 % (35.0-45.0); HEMOGLOBIN 13.8 g/dl (12.0-16.0); LYMPHOCYTES # (AUTO) 2.1 X10'3 (1.1-4.8); LYMPHOCYTES % (AUTO) 11.9 % (21-51); MEAN CORPUSCULAR HGB CONC 33.7 g/dL (33.0-36.5); MEAN PLATELET VOLUME 9.2 FL (7.4-10.4); MONOCYTES # (AUTO) 1.5 X10'3 (0-0.9); MONOCYTES % (AUTO) 8.3 % (2-12); NEUTROPHILS # (AUTO) 13.9 X10'3 (1.8-7.7); NEUTROPHILS % (AUTO) 79.6 % (42-75); PLATELET COUNT 243 X10'3 (140-440); RED CELL DISTRIBUTION WIDTH 13.5 % (11.5-14.5); WHITE BLOOD COUNT 17.5 X10'3 (4.5-11.0)
[2020-06-05 07:53] LABS: ALANINE AMINOTRANSFERASE 20 U/L (12-78); ALBUMIN 3.2 G/DL (3.4-5.0); ALBUMIN/GLOBULIN RATIO 0.8 (1.1-1.5); ALKALINE PHOSPHATASE 62 IU/L (46-116); ANION GAP 10 (8-16); ASPARTATE AMINO TRANSFERASE 23 U/L (10-37); BILIRUBIN,TOTAL 0.7 MG/DL (0.1-1.0); BLOOD UREA NITROGEN 14 MG/DL (7-18); BUN/CREATININE RATIO 26.4 (6.6-38.0); CALCIUM 9.3 MG/DL (8.5-10.1); CHLORIDE 110 MMOL/L (99-107); CREATININE 0.53 MG/DL (0.40-0.90); GLUCOSE 129 MG/DL (70-104); LIPASE 75 U/L (73-393); MAGNESIUM 2.1 MG/DL (1.5-2.4); POTASSIUM 3.7 MMOL/L (3.5-5.1); SODIUM 145 MMOL/L (135-145); TOTAL CARBON DIOXIDE 25.1 MMOL/L (24-32); TOTAL PROTEIN 7.3 G/DL (6.4-8.2); eGFR > 90 ML/MIN
[2020-06-05] MEDS: budesonide 0.5mg/2ml UD nebule IH SCH ×2 (08:00→21:11)
[2020-06-05] MEDS: K and/or MAG REPLACEMENT MC SCH ×2 (08:00→18:47)
[2020-06-05] MEDS: HYDROchlorothiazide 12.5mg capsule PO SCH (08:46)
[2020-06-05] MEDS: gabapentin 300mg capsule PO SCH ×3 (08:47→21:41)
[2020-06-05] MEDS: lactobacillus rhamnosus 10,000 MMU CELLS/CAPSULE PO SCH ×2 (08:47→21:41)
[2020-06-05] MEDS: heparin, porcine 5000 units/ml vial SQ SCH ×2 (08:48→19:00)
[2020-06-05] MEDS: losartan 50mg tablet PO SCH (08:49)
[2020-06-05] MEDS: levoTHYROXINE 25mcg tablet PO SCH (08:50)
[2020-06-05] MEDS: pantoprazole 40mg Tablet.DR PO SCH (08:50)
[2020-06-05 11:00] VITALS: BP 155/82
--- NOTE | 2020-06-05 11:06 | NUR ---
0900 SVN treatment triaged
--- NOTE | 2020-06-05 13:00 | NUR ---
Discontinued patient's catheter with no complications, will continue to monitor and encourage pt to void QH.
[2020-06-05 15:00] VITALS: BP 130/75
[2020-06-05 18:15] VITALS: BP 166/80
--- NOTE | 2020-06-05 18:25 | NUR ---
Problems reprioritized. Patient report given, questions answered & plan of care reviewed with STEPHENIE Best. Pt sitting up in bed, resting comfortably. Informed NOC nurse to monitor patient's heart rate closely, and to inform Dr Garcia of any drastic changes. Dr Flores to do possible cardioversion tomorrow if heart rate is continuing to be unstable. Addendum: 06/05/20 at 1829 by Roro Yu RN Charted end of shift report on wrong patient.
--- NOTE | 2020-06-05 18:35 | NUR ---
Problems reprioritized. Patient report given, questions answered & plan of care reviewed with STEPHENIE Guidry. Pt resting at change of shift. All patient needs met at this time.
--- NOTE | 2020-06-05 18:43 | NUR ---
Patient in room PCU 3017. I have received report from Roro Reynolds RN and had the opportunity to ask questions and assume patient care.
[2020-06-05 23:39] VITALS: BP 143/71
[2020-06-06] MEDS: HYDROcodone/acetaminophen 10/325mg tab PO PRN ×3 (02:48→22:49)
[2020-06-06 02:51] VITALS: BP 135/69
[2020-06-06] MEDS: HYDROmorphone inj. 0.5 MG/0.5 ML DISP.SYRIN IV PRN ×2 (04:46→08:50)
[2020-06-06 06:22] LABS: BASOPHILS % (AUTO) 0.3 % (0-1); EOSINOPHILS % (AUTO) 0.1 % (0-6); HEMATOCRIT 35.7 % (35.0-45.0); LYMPHOCYTES # (AUTO) 1.8 X10'3 (1.1-4.8); LYMPHOCYTES % (AUTO) 14.3 % (21-51); MEAN CORPUSCULAR HEMOGLOBIN 31.8 PG (27.0-31.0); MEAN CORPUSCULAR HGB CONC 33.7 g/dL (33.0-36.5); MEAN CORPUSCULAR VOLUME 94.3 FL (78-98); MEAN PLATELET VOLUME 8.9 FL (7.4-10.4); MONOCYTES # (AUTO) 1.2 X10'3 (0-0.9); MONOCYTES % (AUTO) 9.8 % (2-12); NEUTROPHILS # (AUTO) 9.3 X10'3 (1.8-7.7); NEUTROPHILS % (AUTO) 75.5 % (42-75); PLATELET COUNT 196 X10'3 (140-440); RED BLOOD COUNT 3.78 X10'6 (4.20-5.60); RED CELL DISTRIBUTION WIDTH 13.5 % (11.5-14.5); WHITE BLOOD COUNT 12.4 X10'3 (4.5-11.0)
--- NOTE | 2020-06-06 06:24 | NUR ---
Problems reprioritized. Patient report given, questions answered & plan of care reviewed with STEPHENIE Lagos.
[2020-06-06 06:29] LABS: PARTIAL THROMBOPLASTIN TIME 26 SECONDS (22-32)
[2020-06-06 06:34] LABS: CHLORIDE 105 MMOL/L (99-107); POTASSIUM 3.1 MMOL/L (3.5-5.1); SODIUM 140 MMOL/L (135-145)
[2020-06-06 07:02] LABS: ALANINE AMINOTRANSFERASE 21 U/L (12-78); ALBUMIN 2.8 G/DL (3.4-5.0); ALBUMIN/GLOBULIN RATIO 0.8 (1.1-1.5); ALKALINE PHOSPHATASE 54 IU/L (46-116); ANION GAP 8 (8-16); ASPARTATE AMINO TRANSFERASE 26 U/L (10-37); BILIRUBIN,TOTAL 0.9 MG/DL (0.1-1.0); BLOOD UREA NITROGEN 7 MG/DL (7-18); BUN/CREATININE RATIO 14.3 (6.6-38.0); CALCIUM 8.9 MG/DL (8.5-10.1); CREATININE 0.49 MG/DL (0.40-0.90); GLUCOSE 114 MG/DL (70-104); MAGNESIUM 1.8 MG/DL (1.5-2.4); TOTAL CARBON DIOXIDE 27.5 MMOL/L (24-32); TOTAL PROTEIN 6.5 G/DL (6.4-8.2); eGFR > 90 ML/MIN
[2020-06-06] MEDS: losartan 50mg tablet PO SCH (08:00)
[2020-06-06] MEDS: K and/or MAG REPLACEMENT MC SCH ×2 (08:00→20:00)
[2020-06-06] MEDS: heparin, porcine 5000 units/ml vial SQ SCH ×2 (08:00→20:49)
[2020-06-06] MEDS: albuterol 2.5 MG/3 ML nebule NEB SCH ×3 (08:12→21:00)
[2020-06-06] MEDS: budesonide 0.5mg/2ml UD nebule IH SCH ×2 (08:12→20:00)
[2020-06-06] MEDS: piperacillin/tazo 3.375gm/50ml 50 ML IV SCH ×2 (08:39→16:00)
[2020-06-06] MEDS: gabapentin 300mg capsule PO SCH ×3 (08:39→20:49)
[2020-06-06] MEDS: lactobacillus rhamnosus 10,000 MMU CELLS/CAPSULE PO SCH ×2 (08:40→20:51)
[2020-06-06] MEDS: HYDROchlorothiazide 12.5mg capsule PO SCH (08:41)
[2020-06-06] MEDS: pantoprazole 40mg Tablet.DR PO SCH (08:43)
[2020-06-06] MEDS: levoTHYROXINE 25mcg tablet PO SCH (08:43)
[2020-06-06 11:00] VITALS: BP 132/78
[2020-06-06] MEDS ORDERED: morphine 2 MG/ML inj. syringe IV PRN ×2 (11:05)
[2020-06-06] MEDS: potassium Cl 20mEq in NS 1,000 ML IV SCH ×2 (13:40→23:35)
[2020-06-06 15:00] VITALS: BP 144/67
[2020-06-06 17:40] LABS: GLUCOSE,CSF 9 MG/DL (40-75)
[2020-06-06 17:55] LABS: TOTAL PROTEIN,CSF > 750 MG/DL (30-60)
[2020-06-06 18:00] VITALS: BP 152/77
--- NOTE | 2020-06-06 18:31 | NUR ---
Problems reprioritized. Patient report given, questions answered & plan of care reviewed with Rikki RN.
[2020-06-06 18:36] LABS: APPEARANCE,CSF BLOODY; CSF SUPERNATANT COLOR RED; EOSINOPHILS,CSF 1 %; LYMPHOCYTES,CSF 25 % (40-80); MONOCYTES,CSF 1 % (15-45); NEUTRO,CSF 73 % (0-6)
[2020-06-06 18:37] LABS: CSF VOLUME 9 ML; TUBE# COUNTED 3
[2020-06-06 18:39] LABS: CSF RBC 1087500 /CU MM (0); CSF WBC CT 1389 /CU MM (0-5)
--- NOTE | 2020-06-06 19:02 | NUR ---
Page Sent promotional table spacer PAGER ID: [phone] MESSAGE: [id number] - Luzmaria Cartagena 79F - Pt has critically high CSF WBC's of 1389 from Lumbar tap performed today to r/o meningitis. Patient is currently laying flat with only symptom of LUND, HTN 152sbp. [phone] Rikki CASIANO Addendum: 06/07/20 at 0211 by Solitario Angulo RN @ 1905 - Placed patient on droplet isolation and gave patient a mask to wear anticipating future orders and bacterial meningitis.
--- NOTE | 2020-06-06 19:07 | NUR ---
Dr. Mendoza responded to previous page and requested I call Dr. Ambrocio first due to this being "a new diagnosis and her being unsure what to do" she stated "you could have paged 3-5 minutes ago and it would be Dr. Ambrocio" - Followed Dr. Ventura request and paged Dr. Ambrocio after 1899. Page Sent promotional table spacer PAGER ID: [phone] MESSAGE: Foreign - Luzmaria Cartagena - Pt has critically high CSF WBCs of 1389 from Lumbar tap performed today to r/o meningitis. Pt is currently laying flat with only symptom of LUND, HTN 152sbp. Dr. Mendoza desired me to page you. [phone] Rikki CASIANO Addendum: 06/06/20 at 191 by Solitario Angulo RN Dr. Ambrocio called and asked me "who is the night doctor luli" - I responded "The night doctor luli is Dr. Mendoza" Dr. Ambrocio responded with "Okay. I will get back to you" and the hung up the phone. Addendum: 06/07/20 at 0209 by Solitario Angulo RN Dr. Mendoza returned call shortly after to notify me of new orders placed after consulting Infectious DZ kynast. Pt placed on isolation and abx to be administered as ordered throughout night - will continue to monitor and perform freq neuro checks.
[2020-06-06] MEDS ORDERED: vancomycin/NS 1 GM ADD-VANTAGE 250 ML IV SCH (20:00)
[2020-06-06] MEDS: CefTRIAXone 2gm/D5W 50ml BAG 50 ML IV SCH ×3 (20:00→22:50)
[2020-06-06] MEDS: ampicillin inj 2 GM in normal saline 100ml IV soln 100 ML IV SCH ×2 (20:38→22:50)
[2020-06-06] MEDS ORDERED: potassium CL 10mEq/100ml bag 100 ML IV PRN (21:15)
[2020-06-06] MEDS ORDERED: potassium Cl 20 mEq SR tablet PO PRN (21:15)
[2020-06-06] MEDS ORDERED: magnesium Cl slow-release 64mg tablet PO PRN (21:15)
[2020-06-06] MEDS ORDERED: magnesium 4gm in 100ml NS 100 ML IV PRN (21:15)
[2020-06-06] MEDS: potassium Cl 20 mEq SR tablet PO PRN (22:48)
[2020-06-06 22:55] VITALS: BP 137/61
[2020-06-07] MEDS: ampicillin inj 2 GM in normal saline 100ml IV soln 100 ML IV SCH ×4 (01:19→19:25)
[2020-06-07] MEDS: albuterol 2.5 MG/3 ML nebule NEB SCH ×3 (03:00→20:26)
[2020-06-07] MEDS: potassium Cl 20 mEq SR tablet PO PRN ×4 (03:01→22:30)
[2020-06-07 03:03] VITALS: BP 139/67
[2020-06-07] MEDS: HYDROcodone/acetaminophen 10/325mg tab PO PRN ×4 (04:09→20:28)
--- NOTE | 2020-06-07 04:19 | NUR ---
Page Sent promotional table spacer PAGER ID: [phone] MESSAGE: [phone]- Luzmaria Cartagena 79F / Pt c/o of significant pain post [place] q4/morphine q4 - pt has hx of fibromyalgia w/ new dx of meningitis. Pt states she takes [place] 10mg x3 daily. Pt had been receiving dilaudid 1mg 06/03 - 06/06 [phone] Rikki Addendum: 06/07/20 at 0424 by Soliatrio Angulo RN Discussed pt condition w/ MD. Dr. Mendoza - ordered x1 1mg dose of Dilaudid ivp now will place order and admin.
[2020-06-07] MEDS ORDERED: HYDROmorphone 1 mg/ml syringe IV ONE (04:25)
[2020-06-07 06:30] VITALS: BP 150/69
[2020-06-07 06:40] LABS: HIV ANTIBODY 1&2 RAPID NON-REACTIVE (Neg)
--- NOTE | 2020-06-07 06:40 | NUR ---
Problems reprioritized. Patient report given, questions answered & plan of care reviewed with Yoselin CASIANO.
[2020-06-07 06:42] LABS: BASOPHILS % (AUTO) 0.1 % (0-1); EOSINOPHILS % (AUTO) 0.1 % (0-6); HEMATOCRIT 35.3 % (35.0-45.0); HEMOGLOBIN 12.4 g/dl (12.0-16.0); LYMPHOCYTES # (AUTO) 1.3 X10'3 (1.1-4.8); LYMPHOCYTES % (AUTO) 12.8 % (21-51); MEAN CORPUSCULAR HEMOGLOBIN 32.9 PG (27.0-31.0); MEAN PLATELET VOLUME 8.6 FL (7.4-10.4); MONOCYTES # (AUTO) 0.9 X10'3 (0-0.9); MONOCYTES % (AUTO) 8.7 % (2-12); NEUTROPHILS # (AUTO) 7.9 X10'3 (1.8-7.7); NEUTROPHILS % (AUTO) 78.3 % (42-75); PLATELET COUNT 206 X10'3 (140-440); RED BLOOD COUNT 3.76 X10'6 (4.20-5.60); RED CELL DISTRIBUTION WIDTH 13.2 % (11.5-14.5)
[2020-06-07 07:01] LABS: ALANINE AMINOTRANSFERASE 26 U/L (12-78); ALBUMIN 3.1 G/DL (3.4-5.0); ALBUMIN/GLOBULIN RATIO 0.8 (1.1-1.5); ALKALINE PHOSPHATASE 54 IU/L (46-116); ANION GAP 9 (8-16); ASPARTATE AMINO TRANSFERASE 22 U/L (10-37); BILIRUBIN,TOTAL 0.9 MG/DL (0.1-1.0); BLOOD UREA NITROGEN 9 MG/DL (7-18); CALCIUM 8.7 MG/DL (8.5-10.1); CHLORIDE 104 MMOL/L (99-107); CREATININE 0.53 MG/DL (0.40-0.90); GLUCOSE 121 MG/DL (70-104); MAGNESIUM 1.7 MG/DL (1.5-2.4); SODIUM 141 MMOL/L (135-145); TOTAL CARBON DIOXIDE 28.3 MMOL/L (24-32); eGFR > 90 ML/MIN
[2020-06-07 07:09] LABS: POTASSIUM 2.9 MMOL/L (3.5-5.1)
[2020-06-07] MEDS: budesonide 0.5mg/2ml UD nebule IH SCH ×2 (08:00→20:00)
[2020-06-07] MEDS: K and/or MAG REPLACEMENT MC SCH ×2 (08:00→20:00)
--- NOTE | 2020-06-07 08:19 | NUR ---
notified. PAGER ID: [phone] MESSAGE: RE: Luzmaria Cartagena. [id number]. FYI, Critical lab value for her K, 2.9. Will replace. Thanks. Yoselin Dueñas [phone].
[2020-06-07] MEDS: losartan 50mg tablet PO SCH (09:00)
[2020-06-07] MEDS: gabapentin 300mg capsule PO SCH ×3 (09:02→20:28)
[2020-06-07] MEDS: lactobacillus rhamnosus 10,000 MMU CELLS/CAPSULE PO SCH ×2 (09:02→19:25)
[2020-06-07] MEDS: pantoprazole 40mg Tablet.DR PO SCH (09:03)
[2020-06-07] MEDS: HYDROchlorothiazide 12.5mg capsule PO SCH (09:03)
[2020-06-07] MEDS: levoTHYROXINE 25mcg tablet PO SCH (09:03)
[2020-06-07] MEDS: CefTRIAXone 2gm/D5W 50ml BAG 50 ML IV SCH ×2 (09:09→20:28)
[2020-06-07] MEDS: heparin, porcine 5000 units/ml vial SQ SCH ×2 (09:15→19:25)
[2020-06-07] MEDS: potassium Cl 20mEq in NS 1,000 ML IV SCH ×2 (10:21→19:25)
[2020-06-07 11:00] VITALS: BP 167/73
[2020-06-07] MEDS: HYDROmorphone inj. 0.5 MG/0.5 ML DISP.SYRIN IV PRN ×3 (11:09→22:29)
[2020-06-07 15:00] VITALS: BP 163/83
--- NOTE | 2020-06-07 16:30 | NUR ---
While during neuro-checks, noticed that the patient had a bandage within the medial aspect of the left knee. Patient reports that she had a repair of a "leaky vein" with Dr. Minor last week. No bruising or redness to area. Dr. Ambrocio notified.
[2020-06-07 18:00] VITALS: BP 159/79
--- NOTE | 2020-06-07 18:39 | NUR ---
Problems reprioritized. Patient report given, questions answered & plan of care reviewed with STEPHENIE Ortega.
[2020-06-07 22:00] VITALS: BP 168/65
[2020-06-07] MEDS: hydrALAZINE 20mg/ml inj. IV PRN (22:52)
[2020-06-08] MEDS: vancomycin/NS 1 GM ADD-VANTAGE 250 ML IV SCH (00:25)
[2020-06-08] MEDS: HYDROcodone/acetaminophen 10/325mg tab PO PRN ×4 (01:25→23:44)
[2020-06-08 02:00] VITALS: BP 144/68
[2020-06-08] MEDS: ampicillin inj 2 GM in normal saline 100ml IV soln 100 ML IV SCH ×4 (02:49→19:19)
[2020-06-08] MEDS: albuterol 2.5 MG/3 ML nebule NEB SCH ×4 (03:00→20:00)
[2020-06-08] MEDS: HYDROmorphone inj. 0.5 MG/0.5 ML DISP.SYRIN IV PRN ×4 (03:39→21:18)
[2020-06-08] MEDS: potassium Cl 20mEq in NS 1,000 ML IV SCH ×2 (05:40→16:58)
[2020-06-08 05:50] LABS: BASOPHILS % (AUTO) 0.4 % (0-1); EOSINOPHILS % (AUTO) 0.3 % (0-6); HEMOGLOBIN 12.5 g/dl (12.0-16.0); LYMPHOCYTES # (AUTO) 1.4 X10'3 (1.1-4.8); LYMPHOCYTES % (AUTO) 13.9 % (21-51); MEAN CORPUSCULAR HEMOGLOBIN 32.5 PG (27.0-31.0); MEAN CORPUSCULAR HGB CONC 34.7 g/dL (33.0-36.5); MEAN CORPUSCULAR VOLUME 93.7 FL (78-98); MEAN PLATELET VOLUME 9.1 FL (7.4-10.4); MONOCYTES % (AUTO) 9.7 % (2-12); NEUTROPHILS # (AUTO) 7.5 X10'3 (1.8-7.7); NEUTROPHILS % (AUTO) 75.7 % (42-75); PLATELET COUNT 227 X10'3 (140-440); RED BLOOD COUNT 3.84 X10'6 (4.20-5.60); RED CELL DISTRIBUTION WIDTH 13.3 % (11.5-14.5); WHITE BLOOD COUNT 9.9 X10'3 (4.5-11.0)
[2020-06-08 05:54] LABS: ALANINE AMINOTRANSFERASE 25 U/L (12-78); ALBUMIN 3.2 G/DL (3.4-5.0); ALBUMIN/GLOBULIN RATIO 0.8 (1.1-1.5); ALKALINE PHOSPHATASE 56 IU/L (46-116); ANION GAP 10 (8-16); ASPARTATE AMINO TRANSFERASE 21 U/L (10-37); BILIRUBIN,TOTAL 0.7 MG/DL (0.1-1.0); BLOOD UREA NITROGEN 6 MG/DL (7-18); BUN/CREATININE RATIO 12.2 (6.6-38.0); CALCIUM 8.9 MG/DL (8.5-10.1); CHLORIDE 99 MMOL/L (99-107); CREATININE 0.49 MG/DL (0.40-0.90); GLUCOSE 127 MG/DL (70-104); MAGNESIUM 1.6 MG/DL (1.5-2.4); POTASSIUM 3.2 MMOL/L (3.5-5.1); SODIUM 134 MMOL/L (135-145); TOTAL CARBON DIOXIDE 25.5 MMOL/L (24-32); TOTAL PROTEIN 7.3 G/DL (6.4-8.2); eGFR > 90 ML/MIN
[2020-06-08 06:00] VITALS: BP 149/79
--- NOTE | 2020-06-08 06:31 | NUR ---
Problems reprioritized. Patient report given, questions answered & plan of care reviewed with Lena CASIANO.
[2020-06-08] MEDS: budesonide 0.5mg/2ml UD nebule IH SCH ×2 (08:09→20:00)
[2020-06-08] MEDS: losartan 50mg tablet PO SCH (08:55)
[2020-06-08] MEDS: gabapentin 300mg capsule PO SCH ×3 (08:55→21:18)
[2020-06-08] MEDS: CefTRIAXone 2gm/D5W 50ml BAG 50 ML IV SCH ×2 (08:57→20:33)
[2020-06-08] MEDS: heparin, porcine 5000 units/ml vial SQ SCH ×2 (08:58→19:20)
[2020-06-08] MEDS: HYDROchlorothiazide 12.5mg capsule PO SCH (08:59)
[2020-06-08] MEDS: levoTHYROXINE 25mcg tablet PO SCH (09:30)
[2020-06-08] MEDS: lactobacillus rhamnosus 10,000 MMU CELLS/CAPSULE PO SCH ×2 (09:30→19:20)
[2020-06-08] MEDS: pantoprazole 40mg Tablet.DR PO SCH (10:44)
[2020-06-08 11:00] VITALS: BP 166/81
[2020-06-08] MEDS: K and/or MAG REPLACEMENT MC SCH ×2 (12:13→20:24)
[2020-06-08] MEDS: hydrALAZINE 20mg/ml inj. IV PRN (12:15)
[2020-06-08 15:00] VITALS: BP 134/74
--- NOTE | 2020-06-08 17:12 | NUR ---
Initial: Pt admit DX sepsis secondary to diverticulitis, chronic pain syndrome, and bacterial meningitis per MD note. Mild acute diverticulitis w/ moderate diverticulosis of sigmoid and descending colon present per CT note. Pt had abdominal pain w/ vomiting on admit resolved since 06/05 per EMR. PO 75% avg clear liquid diet first 2 days and first full liquid meal 06/06 now down to 25% recent meals. RD recommends ensure enlive TIDWM for additional kcal/protein needs; MD notified. Pt receiving HCTZ and electrolyte replacements per protocol. LBM 06/03 receiving dilaudid; RD d/w RN regarding routine bowel care if MD agreeable since none yet this admit. Will monitor for PO diet tolerance, advancement, and ONS acceptance. Rec: 1. advance diet as medically indicated to low-residue 2. ensure enlive TIDWM; encourage PO 3. routine bowel care; consider opioid antagonist since receiving dilaudid 4. weekly wts Addendum: 06/08/20 at [address] Amended: Links added.
[2020-06-08 18:00] VITALS: BP 152/67
[2020-06-08] MEDS ORDERED: lactose-reduced food (Ensure Enlive) - 237ml bottle PO SCH (18:00)
--- NOTE | 2020-06-08 18:14 | NUR ---
Patient in room PCU 3017. I have received report from Lena CASIANO and had the opportunity to ask questions and assume patient care.
--- NOTE | 2020-06-08 19:38 | NUR ---
Problems reprioritized. Patient report given, questions answered & plan of care reviewed with
[2020-06-08 22:00] VITALS: BP 154/75
[2020-06-09] VITALS (9 sets, daily range): BP systolic 121–171; BP diastolic 62–82
[2020-06-09] MEDS: vancomycin/NS 1 GM ADD-VANTAGE 250 ML IV SCH (00:18)
[2020-06-09] MEDS: ampicillin inj 2 GM in normal saline 100ml IV soln 100 ML IV SCH ×4 (02:09→20:22)
[2020-06-09] MEDS: albuterol 2.5 MG/3 ML nebule NEB SCH ×3 (03:00→20:16)
[2020-06-09] MEDS: potassium Cl 20mEq in NS 1,000 ML IV SCH ×3 (03:46→23:27)
[2020-06-09] MEDS: HYDROmorphone inj. 0.5 MG/0.5 ML DISP.SYRIN IV PRN (03:47)
--- NOTE | 2020-06-09 06:08 | NUR ---
Problems reprioritized. Patient report given, questions answered & plan of care reviewed with Lani CASIANO.
[2020-06-09] MEDS: hydrALAZINE 20mg/ml inj. IV PRN ×2 (06:21→13:26)
[2020-06-09 06:22] LABS: BASOPHILS % (AUTO) 0.2 % (0-1); EOSINOPHILS # (AUTO) 0.1 X10'3 (0-0.9); EOSINOPHILS % (AUTO) 0.6 % (0-6); HEMATOCRIT 36.6 % (35.0-45.0); HEMOGLOBIN 12.9 g/dl (12.0-16.0); LYMPHOCYTES # (AUTO) 1.2 X10'3 (1.1-4.8); LYMPHOCYTES % (AUTO) 11.6 % (21-51); MEAN CORPUSCULAR HEMOGLOBIN 32.7 PG (27.0-31.0); MEAN CORPUSCULAR HGB CONC 35.1 g/dL (33.0-36.5); MEAN CORPUSCULAR VOLUME 93.3 FL (78-98); MEAN PLATELET VOLUME 8.6 FL (7.4-10.4); MONOCYTES # (AUTO) 0.9 X10'3 (0-0.9); MONOCYTES % (AUTO) 8.3 % (2-12); NEUTROPHILS # (AUTO) 8.3 X10'3 (1.8-7.7); NEUTROPHILS % (AUTO) 79.3 % (42-75); PLATELET COUNT 257 X10'3 (140-440); RED BLOOD COUNT 3.93 X10'6 (4.20-5.60); RED CELL DISTRIBUTION WIDTH 13.2 % (11.5-14.5); WHITE BLOOD COUNT 10.5 X10'3 (4.5-11.0)
[2020-06-09 06:24] LABS: ALANINE AMINOTRANSFERASE 26 U/L (12-78); ALBUMIN 3.3 G/DL (3.4-5.0); ALBUMIN/GLOBULIN RATIO 0.7 (1.1-1.5); ALKALINE PHOSPHATASE 61 IU/L (46-116); ANION GAP 12 (8-16); ASPARTATE AMINO TRANSFERASE 16 U/L (10-37); BILIRUBIN,TOTAL 0.8 MG/DL (0.1-1.0); BLOOD UREA NITROGEN 5 MG/DL (7-18); CALCIUM 9.2 MG/DL (8.5-10.1); CHLORIDE 98 MMOL/L (99-107); GLUCOSE 123 MG/DL (70-104); MAGNESIUM 1.6 MG/DL (1.5-2.4); SODIUM 137 MMOL/L (135-145); TOTAL CARBON DIOXIDE 27.1 MMOL/L (24-32); TOTAL PROTEIN 7.8 G/DL (6.4-8.2); eGFR > 90 ML/MIN
[2020-06-09 06:27] LABS: POTASSIUM 2.7 MMOL/L (3.5-5.1)
--- NOTE | 2020-06-09 06:35 | NUR ---
Critical K+ of 2.7, Dr. Hammonds notified, orders to follow protocol.
--- NOTE | 2020-06-09 06:38 | NUR ---
Patient in room PCU 3017. I have received report from Jordan CASIANO and had the opportunity to ask questions and assume patient care.
[2020-06-09] MEDS: levoTHYROXINE 25mcg tablet PO SCH (07:39)
[2020-06-09] MEDS: HYDROchlorothiazide 12.5mg capsule PO SCH (07:39)
[2020-06-09] MEDS: gabapentin 300mg capsule PO SCH ×3 (07:39→20:27)
[2020-06-09] MEDS: HYDROcodone/acetaminophen 10/325mg tab PO PRN ×4 (07:39→20:40)
[2020-06-09] MEDS: lactobacillus rhamnosus 10,000 MMU CELLS/CAPSULE PO SCH ×2 (07:39→20:24)
[2020-06-09] MEDS: losartan 50mg tablet PO SCH (07:39)
[2020-06-09] MEDS: heparin, porcine 5000 units/ml vial SQ SCH ×2 (07:40→20:26)
[2020-06-09] MEDS: pantoprazole 40mg Tablet.DR PO SCH (07:40)
[2020-06-09] MEDS: potassium Cl 20 mEq SR tablet PO PRN ×3 (07:40→16:40)
[2020-06-09] MEDS: CefTRIAXone 2gm/D5W 50ml BAG 50 ML IV SCH ×2 (07:41→21:13)
[2020-06-09] MEDS: budesonide 0.5mg/2ml UD nebule IH SCH ×2 (08:00→20:00)
[2020-06-09] MEDS: K and/or MAG REPLACEMENT MC SCH ×2 (08:30→20:00)
--- NOTE | 2020-06-09 18:38 | NUR ---
Problems reprioritized. Patient report given, questions answered & plan of care reviewed with Mireille CASIANO. Pt. offers no complaints, eating dinner and watching t.v.
--- NOTE | 2020-06-09 18:40 | NUR ---
Problems reprioritized. Patient report given, questions answered & plan of care reviewed with Mireille CASIANO. Pt. offers no complaints, resting quietly.
--- NOTE | 2020-06-09 18:42 | NUR ---
I have received report from Lani CASIANO and had the opportunity to ask questions and assume patient care.
[2020-06-09] MEDS ORDERED: VANCOMYCIN LEVEL IV ONE (19:30)
[2020-06-09 19:43] LABS: POTASSIUM 3.4 MMOL/L (3.5-5.1); VANCOMYCIN,TROUGH 3.3 UG/ML (6.0-14.0)
[2020-06-10] MEDS: HYDROcodone/acetaminophen 10/325mg tab PO PRN ×4 (00:46→12:58)
[2020-06-10 02:00] VITALS: BP 149/76
[2020-06-10] MEDS: ampicillin inj 2 GM in normal saline 100ml IV soln 100 ML IV SCH ×4 (02:14→23:43)
[2020-06-10] MEDS: albuterol 2.5 MG/3 ML nebule NEB SCH ×4 (02:35→20:03)
[2020-06-10 06:08] LABS: MAGNESIUM 1.7 MG/DL (1.5-2.4); POTASSIUM 3.1 MMOL/L (3.5-5.1)
--- NOTE | 2020-06-10 06:20 | NUR ---
Problems reprioritized. Patient report given, questions answered & plan of care reviewed with Jory CASIANO. Addendum: 06/10/20 at 0620 by Mireille Johnson RN Problems reprioritized. Patient report given, questions answered & plan of care reviewed with Lani CASIANO.
--- NOTE | 2020-06-10 06:29 | NUR ---
Patient in room PCU 3017. I have received report from STEPHENIE Kendrick and had the opportunity to ask questions and assume patient care.
[2020-06-10 07:00] VITALS: BP 153/63
[2020-06-10] MEDS: budesonide 0.5mg/2ml UD nebule IH SCH ×2 (07:37→20:03)
[2020-06-10] MEDS: K and/or MAG REPLACEMENT MC SCH ×3 (08:00→23:36)
[2020-06-10 09:03] LABS: BASOPHILS % (AUTO) 0.2 % (0-1); EOSINOPHILS % (AUTO) 0.4 % (0-6); HEMATOCRIT 37.6 % (35.0-45.0); HEMOGLOBIN 12.8 g/dl (12.0-16.0); LYMPHOCYTES # (AUTO) 1.2 X10'3 (1.1-4.8); MEAN CORPUSCULAR HEMOGLOBIN 32.2 PG (27.0-31.0); MEAN CORPUSCULAR HGB CONC 34.1 g/dL (33.0-36.5); MEAN CORPUSCULAR VOLUME 94.5 FL (78-98); MEAN PLATELET VOLUME 8.8 FL (7.4-10.4); MONOCYTES # (AUTO) 0.8 X10'3 (0-0.9); NEUTROPHILS # (AUTO) 8.8 X10'3 (1.8-7.7); NEUTROPHILS % (AUTO) 81.4 % (42-75); PLATELET COUNT 284 X10'3 (140-440); RED BLOOD COUNT 3.98 X10'6 (4.20-5.60); RED CELL DISTRIBUTION WIDTH 13.4 % (11.5-14.5); WHITE BLOOD COUNT 10.8 X10'3 (4.5-11.0)
[2020-06-10] MEDS: lactobacillus rhamnosus 10,000 MMU CELLS/CAPSULE PO SCH ×2 (09:06→09:24)
[2020-06-10] MEDS: losartan 50mg tablet PO SCH ×2 (09:11→09:27)
[2020-06-10] MEDS: HYDROchlorothiazide 12.5mg capsule PO SCH ×2 (09:11→09:26)
[2020-06-10] MEDS: levoTHYROXINE 25mcg tablet PO SCH ×2 (09:11→09:25)
[2020-06-10] MEDS: gabapentin 300mg capsule PO SCH ×3 (09:12→21:37)
[2020-06-10] MEDS: heparin, porcine 5000 units/ml vial SQ SCH ×2 (09:17→21:36)
[2020-06-10 09:20] LABS: ALANINE AMINOTRANSFERASE 26 U/L (12-78); ALBUMIN 3.3 G/DL (3.4-5.0); ALBUMIN/GLOBULIN RATIO 0.7 (1.1-1.5); ALKALINE PHOSPHATASE 61 IU/L (46-116); ANION GAP 12 (8-16); ASPARTATE AMINO TRANSFERASE 16 U/L (10-37); BILIRUBIN,TOTAL 0.7 MG/DL (0.1-1.0); BLOOD UREA NITROGEN 5 MG/DL (7-18); BUN/CREATININE RATIO 10.4 (6.6-38.0); CALCIUM 9.2 MG/DL (8.5-10.1); CHLORIDE 99 MMOL/L (99-107); CREATININE 0.48 MG/DL (0.40-0.90); GLUCOSE 138 MG/DL (70-104); POTASSIUM 3.1 MMOL/L (3.5-5.1); SODIUM 134 MMOL/L (135-145); TOTAL CARBON DIOXIDE 23.3 MMOL/L (24-32); TOTAL PROTEIN 7.8 G/DL (6.4-8.2); eGFR > 90 ML/MIN
[2020-06-10] MEDS: pantoprazole 40mg Tablet.DR PO SCH (09:30)
[2020-06-10] MEDS ORDERED: magnesium Cl slow-release 64mg tablet PO PRN (09:35)
[2020-06-10] MEDS ORDERED: potassium CL 10mEq/100ml bag 100 ML IV PRN (09:35)
[2020-06-10] MEDS ORDERED: magnesium 4gm in 100ml NS 100 ML IV PRN (09:35)
[2020-06-10] MEDS: potassium Cl 20 mEq SR tablet PO PRN ×2 (09:40→14:20)
[2020-06-10 11:00] VITALS: BP 147/62
[2020-06-10] MEDS: CefTRIAXone 2gm/D5W 50ml BAG 50 ML IV SCH ×2 (11:50→21:37)
[2020-06-10] MEDS: potassium Cl 20mEq in NS 1,000 ML IV SCH (11:50)
[2020-06-10 15:00] VITALS: BP 157/74
--- NOTE | 2020-06-10 16:46 | NUR ---
PAGER ID: [phone] MESSAGE: [phone] Luzmaria Cartagena - Pt. had unwitnessed fall. Patient denies hitting head. Pt. does take anticoagulants. No shortening or deformities of extremities. Patient stated she lost balance. Vital signs stable. Lani CASIANO [phone]
--- NOTE | 2020-06-10 16:46 | NUR ---
At 1640, patient had an unwitnessed fall. Patient was found lying on her side. She denied hitting her head. Patient does take anticoagulants but does not have any s/sx of bleeding. No injury or hematoma noted. Patient stated she was trying to go to the commode and she lost her balance. She being dizzy. Patient denies any pain and was able to ambulate with nursing staff to the [facility]. No shortening or deformities of limbs. Neuro assessment performed. DORINDA. A/O X4, follows all commands. Tongue is midline, no deviation in smile. Strong equal track service person bilaterally. Able to lift both legs and hold them even. Pt. offers no complaints. All vital signs within normal range. MD notified. Daughter notified. All questions answered. Charge made aware and at bedside.
--- NOTE | 2020-06-10 17:11 | NUR ---
Pharmacy notified of fall as well. Post fall neuro assessment within normal range. Patient declines having any new pain.
--- NOTE | 2020-06-10 17:16 | NUR ---
Fall band placed on patient. Education provided to patient. Will continue to monitor closely.
--- NOTE | 2020-06-10 17:16 | NUR ---
PAGER ID: [phone] MESSAGE: [phone] Luzmaria Cartagena - Pt. had unwitnessed fall. Patient denies hitting head. Pt. does take anticoagulants. No shortening or deformities of extremities. Patient stated she lost balance. Vital signs stable. Lani CASIANO [phone]
--- NOTE | 2020-06-10 17:55 | NUR ---
Patient is sitting up eating dinner, no change in neuro status. Pt. is not complaining of any pain. MD gave no orders post fall.
[2020-06-10 18:00] VITALS: BP 123/78
--- NOTE | 2020-06-10 18:34 | NUR ---
Problems reprioritized. Patient report given, questions answered & plan of care reviewed with Michelle CASIANO. Patient is sitting up in bed eating dinner, she has not request pain medication yet. No changes in neuro status. Reported fall to NOC nurse.
[2020-06-10] MEDS: HYDROcodone/acetaminophen 5mg/325mg tablet PO PRN ×2 (20:06→23:45)
[2020-06-10 22:00] VITALS: BP 152/99
--- NOTE | 2020-06-10 23:33 | NUR ---
Dr. Hoskins ordered head CT. took pt down. radiologist called with results. Radiology was referred to Dr. Ambrocio. This RN spoke with Aidee and read results to her. She will call with Dr. Ambrocio now.
[2020-06-11] MEDS ORDERED: iohexol 300mg/ml 100ml inj. ONE (00:16)
--- NOTE | 2020-06-11 00:28 | NUR ---
Dr. Lolly gudino CT with contrast. pt back in wheelchair to go for Head CT
[2020-06-11 02:00] VITALS: BP 148/76
[2020-06-11] MEDS: ampicillin inj 2 GM in normal saline 100ml IV soln 100 ML IV SCH ×3 (02:00→13:13)
--- NOTE | 2020-06-11 02:42 | NUR ---
ampillicin timing got off due to pt procedures. per pharmacy, skip 0200 dose and resume at 0800 as scheduled
[2020-06-11] MEDS: albuterol 2.5 MG/3 ML nebule NEB SCH ×4 (02:58→19:44)
[2020-06-11] MEDS: HYDROcodone/acetaminophen 5mg/325mg tablet PO PRN ×5 (04:30→21:01)
--- NOTE | 2020-06-11 06:31 | NUR ---
Patient in room PCU 3017. I have received report from Michelle CASIANO and had the opportunity to ask questions and assume patient care.
[2020-06-11 07:00] VITALS: BP 148/75
[2020-06-11 07:26] LABS: BASOPHILS % (AUTO) 0.2 % (0-1); EOSINOPHILS # (AUTO) 0.1 X10'3 (0-0.9); EOSINOPHILS % (AUTO) 0.9 % (0-6); HEMATOCRIT 37.9 % (35.0-45.0); HEMOGLOBIN 12.9 g/dl (12.0-16.0); LYMPHOCYTES # (AUTO) 1.3 X10'3 (1.1-4.8); LYMPHOCYTES % (AUTO) 12.2 % (21-51); MEAN CORPUSCULAR VOLUME 94.1 FL (78-98); MEAN PLATELET VOLUME 8.6 FL (7.4-10.4); MONOCYTES # (AUTO) 0.8 X10'3 (0-0.9); MONOCYTES % (AUTO) 7.9 % (2-12); NEUTROPHILS # (AUTO) 8.4 X10'3 (1.8-7.7); NEUTROPHILS % (AUTO) 78.8 % (42-75); PLATELET COUNT 325 X10'3 (140-440); RED BLOOD COUNT 4.03 X10'6 (4.20-5.60); RED CELL DISTRIBUTION WIDTH 13.2 % (11.5-14.5); WHITE BLOOD COUNT 10.7 X10'3 (4.5-11.0)
[2020-06-11 07:41] LABS: ALANINE AMINOTRANSFERASE 26 U/L (12-78); ALBUMIN 3.3 G/DL (3.4-5.0); ALBUMIN/GLOBULIN RATIO 0.7 (1.1-1.5); ALKALINE PHOSPHATASE 64 IU/L (46-116); ANION GAP 12 (8-16); ASPARTATE AMINO TRANSFERASE 15 U/L (10-37); BILIRUBIN,TOTAL 0.7 MG/DL (0.1-1.0); BLOOD UREA NITROGEN 5 MG/DL (7-18); BUN/CREATININE RATIO 10.9 (6.6-38.0); CALCIUM 9.3 MG/DL (8.5-10.1); CHLORIDE 98 MMOL/L (99-107); CREATININE 0.46 MG/DL (0.40-0.90); GLUCOSE 126 MG/DL (70-104); SODIUM 134 MMOL/L (135-145); TOTAL CARBON DIOXIDE 24.2 MMOL/L (24-32); TOTAL PROTEIN 7.8 G/DL (6.4-8.2); eGFR > 90 ML/MIN
--- NOTE | 2020-06-11 07:55 | NUR ---
Critical lab: K: 3.0. Notified primary STEPHENIE Allen
[2020-06-11] MEDS: potassium Cl 20 mEq SR tablet PO PRN ×3 (08:00→16:55)
[2020-06-11] MEDS: pantoprazole 40mg Tablet.DR PO SCH (08:01)
[2020-06-11] MEDS: gabapentin 300mg capsule PO SCH ×3 (08:02→20:04)
[2020-06-11] MEDS: lactobacillus rhamnosus 10,000 MMU CELLS/CAPSULE PO SCH ×2 (08:02→20:04)
[2020-06-11] MEDS: K and/or MAG REPLACEMENT MC SCH ×4 (08:03→20:00)
[2020-06-11] MEDS: CefTRIAXone 2gm/D5W 50ml BAG 50 ML IV SCH (08:05)
[2020-06-11] MEDS: budesonide 0.5mg/2ml UD nebule IH SCH ×2 (09:48→19:44)
--- NOTE | 2020-06-11 10:36 | NUR ---
Patient down for MRI
--- NOTE | 2020-06-11 10:37 | NUR ---
Qid Kelly PAGER ID: [phone] MESSAGE: Re: Luzmaria Cartagena [id number]. FYI pt K 3.0. WIll replace per protocol. Thank you Roro CASIANO [phone]
[2020-06-11 11:00] VITALS: BP 138/74
--- NOTE | 2020-06-11 11:40 | NUR ---
Pt back in room. Tele on and Fluids running. Will continue to monitor.
[2020-06-11 15:00] VITALS: BP 140/71
--- NOTE | 2020-06-11 15:39 | NUR ---
Catia Mendoza promotional table spacer PAGER ID: [phone] MESSAGE: Re: Luzmaria Cartagena RM [id number]. May we advance pts diet? Pt on Full liquid for 8 days. Thank you Roro CASIANO [phone] Dr. Mendoza responded to advance as tolerated up to regular diet.
--- NOTE | 2020-06-11 15:51 | NUR ---
Reassessment: Pt continues on full liquid diet, PO intake up to 100% x 4 most recent meals. ONS still pending MD approval in EMR, d/w RN. Limited additional nutrition interventions at this time given diet order. D/w RN recommendation for diet advancement to low fiber as medically indicated with MD approval given pt now day 8 on a liquid diet not providing adequate nutrition to meet patient's estimated nutrient needs. [facility] 06/10. Will continue to follow closely. Rec: 1. advance diet as medically indicated to low-residue 2. ensure enlive TIDWM, pending MD approval in EMR; encourage PO 3. routine bowel care; consider opioid antagonist since receiving dilaudid 4. weekly wts Addendum: 06/11/20 at [address] Amended: Links added.
[2020-06-11 18:00] VITALS: BP 157/88
--- NOTE | 2020-06-11 18:01 | NUR ---
Ct for bleeds we dont do contrast for head CT. newspaper journalist notified.
--- NOTE | 2020-06-11 18:03 | NUR ---
Paged Dr. Mendoza PAGER ID: [phone] MESSAGE: Re: Luzmaria Cartagena RM [id number]. CT of head ordered. Is this a follow up? w/out contrast? please advise. Roro Yanes [phone]
--- NOTE | 2020-06-11 18:26 | NUR ---
Problems reprioritized. Patient report given, questions answered & plan of care reviewed with Quinn CASIANO.
[2020-06-11] MEDS ORDERED: iohexol 350MG/ML 100ml bottle IV ONE (18:34)
--- NOTE | 2020-06-11 19:42 | NUR ---
Patient in room [place] [address]. I have received report from STEPHENIE Read and had the opportunity to ask questions and assume patient care. Addendum: 06/11/20 at 1944 by Quinn Diamond RN Patient in room [place] [address]. I have received report from STEPHENIE Read and had the opportunity to ask questions and assume patient care. No signs of distress. Safety measures in place, bed in low and locked position. Call light and personal items within reach. Will continue to monitor for remainder of shift.
[2020-06-11 22:00] VITALS: BP 149/88
[2020-06-12 02:00] VITALS: BP 147/82
[2020-06-12] MEDS: albuterol 2.5 MG/3 ML nebule NEB SCH ×3 (02:59→21:00)
[2020-06-12] MEDS: HYDROcodone/acetaminophen 5mg/325mg tablet PO PRN ×3 (04:28→21:20)
[2020-06-12 05:48] LABS: BASOPHILS % (AUTO) 0.2 % (0-1); EOSINOPHILS # (AUTO) 0.1 X10'3 (0-0.9); EOSINOPHILS % (AUTO) 0.5 % (0-6); HEMATOCRIT 39.6 % (35.0-45.0); HEMOGLOBIN 13.2 g/dl (12.0-16.0); LYMPHOCYTES # (AUTO) 1.3 X10'3 (1.1-4.8); MEAN CORPUSCULAR HEMOGLOBIN 31.5 PG (27.0-31.0); MEAN CORPUSCULAR HGB CONC 33.4 g/dL (33.0-36.5); MEAN CORPUSCULAR VOLUME 94.4 FL (78-98); MEAN PLATELET VOLUME 8.4 FL (7.4-10.4); MONOCYTES # (AUTO) 0.9 X10'3 (0-0.9); MONOCYTES % (AUTO) 7.4 % (2-12); NEUTROPHILS # (AUTO) 9.7 X10'3 (1.8-7.7); NEUTROPHILS % (AUTO) 80.9 % (42-75); PLATELET COUNT 393 X10'3 (140-440); RED CELL DISTRIBUTION WIDTH 13.5 % (11.5-14.5)
[2020-06-12 05:59] LABS: ALANINE AMINOTRANSFERASE 29 U/L (12-78); ALBUMIN 3.4 G/DL (3.4-5.0); ALBUMIN/GLOBULIN RATIO 0.7 (1.1-1.5); ALKALINE PHOSPHATASE 67 IU/L (46-116); ANION GAP 11 (8-16); ASPARTATE AMINO TRANSFERASE 21 U/L (10-37); BILIRUBIN,TOTAL 0.8 MG/DL (0.1-1.0); BLOOD UREA NITROGEN 8 MG/DL (7-18); BUN/CREATININE RATIO 13.6 (6.6-38.0); CALCIUM 9.6 MG/DL (8.5-10.1); CHLORIDE 98 MMOL/L (99-107); CREATININE 0.59 MG/DL (0.40-0.90); GLUCOSE 124 MG/DL (70-104); SODIUM 134 MMOL/L (135-145); TOTAL CARBON DIOXIDE 24.7 MMOL/L (24-32); TOTAL PROTEIN 8.2 G/DL (6.4-8.2); eGFR > 90 ML/MIN
[2020-06-12 06:00] VITALS: BP 154/91
[2020-06-12 06:00] LABS: POTASSIUM 3.4 MMOL/L (3.5-5.1)
--- NOTE | 2020-06-12 06:28 | NUR ---
Patient in room PCU 3017. I have received report from STEPHENIE Ball and had the opportunity to ask questions and assume patient care.
--- NOTE | 2020-06-12 06:29 | NUR ---
Problems reprioritized. Patient report given, questions answered & plan of care reviewed with STEPHENIE Tomas. Patient up to commode. No signs of distress. Medications administered as ordered. Care plan followed, worklist complete. Safety measures in place, bed in low and locked position. Call light and personal items within reach. Will continue to monitor for remainder of shift.
[2020-06-12] MEDS: K and/or MAG REPLACEMENT MC SCH ×4 (07:00→20:00)
[2020-06-12] MEDS: pantoprazole 40mg Tablet.DR PO SCH (07:05)
[2020-06-12] MEDS: potassium Cl 20 mEq SR tablet PO PRN ×3 (07:05→16:40)
[2020-06-12] MEDS: levoTHYROXINE 25mcg tablet PO SCH (07:05)
[2020-06-12] MEDS: budesonide 0.5mg/2ml UD nebule IH SCH ×2 (08:00→21:53)
[2020-06-12] MEDS: lactobacillus rhamnosus 10,000 MMU CELLS/CAPSULE PO SCH ×2 (08:35→21:19)
[2020-06-12] MEDS: HYDROchlorothiazide 12.5mg capsule PO SCH (08:35)
[2020-06-12] MEDS: gabapentin 300mg capsule PO SCH ×3 (08:36→21:19)
[2020-06-12] MEDS: losartan 50mg tablet PO SCH (08:36)
[2020-06-12 11:00] VITALS: BP 185/102
--- NOTE | 2020-06-12 11:07 | NUR ---
PAGER ID: [phone] MESSAGE: [phone] Luzmaria Guevara: Heart rate 130's (high since this AM) STEPHENIE Tomas Ext [phone]
[2020-06-12] MEDS: hydrALAZINE 20mg/ml inj. IV PRN (11:14)
--- NOTE | 2020-06-12 12:46 | NUR ---
PAGER ID: [phone] MESSAGE: [phone] Luzmaria Cartagena: we need approval from Dr Marquis to be able to get the Covid test for patient required for transfer. STEPHENIE Tomas Ext [phone]
[2020-06-12 15:00] VITALS: BP 117/64
--- NOTE | 2020-06-12 16:55 | NUR ---
Called report to [phone]. Got hung up on near the end.
[2020-06-12 18:00] VITALS: BP 125/64
--- NOTE | 2020-06-12 18:17 | NUR ---
Problems reprioritized. Patient report given, questions answered & plan of care reviewed with STEPHENIE Ball.
--- NOTE | 2020-06-12 18:45 | NUR ---
Patient in room PCU 3017. I have received report from STEPHENIE Tomas and had the opportunity to ask questions and assume patient care. Patient resting in bed, no signs of distress. Safety measures in place, bed in low and locked position. Call light and personal items within reach. Will continue to monitor throughout shift.
[2020-06-12 19:43] LABS: CRYPTOCOCCUS ANTIGEN, SERUM Negative (Negative)
[2020-06-12 22:00] VITALS: BP 152/95
[2020-06-13] MEDS: HYDROcodone/acetaminophen 5mg/325mg tablet PO PRN ×2 (01:48→06:48)
[2020-06-13 02:00] VITALS: BP 142/72
[2020-06-13] MEDS: albuterol 2.5 MG/3 ML nebule NEB SCH (04:20)
[2020-06-13 06:18] LABS: BASOPHILS % (AUTO) 0.2 % (0-1); EOSINOPHILS # (AUTO) 0.1 X10'3 (0-0.9); EOSINOPHILS % (AUTO) 0.8 % (0-6); HEMATOCRIT 42.3 % (35.0-45.0); HEMOGLOBIN 14.2 g/dl (12.0-16.0); LYMPHOCYTES # (AUTO) 1.7 X10'3 (1.1-4.8); MEAN CORPUSCULAR HEMOGLOBIN 31.8 PG (27.0-31.0); MEAN CORPUSCULAR HGB CONC 33.5 g/dL (33.0-36.5); MEAN CORPUSCULAR VOLUME 95.1 FL (78-98); MEAN PLATELET VOLUME 8.2 FL (7.4-10.4); MONOCYTES # (AUTO) 0.9 X10'3 (0-0.9); MONOCYTES % (AUTO) 7.4 % (2-12); NEUTROPHILS # (AUTO) 9.4 X10'3 (1.8-7.7); NEUTROPHILS % (AUTO) 77.6 % (42-75); PLATELET COUNT 448 X10'3 (140-440); RED BLOOD COUNT 4.45 X10'6 (4.20-5.60); RED CELL DISTRIBUTION WIDTH 13.6 % (11.5-14.5); WHITE BLOOD COUNT 12.1 X10'3 (4.5-11.0)
[2020-06-13 06:35] LABS: ALANINE AMINOTRANSFERASE 31 U/L (12-78); ALBUMIN 3.4 G/DL (3.4-5.0); ALBUMIN/GLOBULIN RATIO 0.7 (1.1-1.5); ALKALINE PHOSPHATASE 75 IU/L (46-116); ANION GAP 13 (8-16); ASPARTATE AMINO TRANSFERASE 19 U/L (10-37); BILIRUBIN,TOTAL 0.8 MG/DL (0.1-1.0); BLOOD UREA NITROGEN 22 MG/DL (7-18); BUN/CREATININE RATIO 31.9 (6.6-38.0); CHLORIDE 101 MMOL/L (99-107); CREATININE 0.69 MG/DL (0.40-0.90); GLUCOSE 120 MG/DL (70-104); POTASSIUM 3.6 MMOL/L (3.5-5.1); SODIUM 137 MMOL/L (135-145); TOTAL CARBON DIOXIDE 23.2 MMOL/L (24-32); TOTAL PROTEIN 8.4 G/DL (6.4-8.2); eGFR 82 ML/MIN
--- NOTE | 2020-06-13 06:35 | NUR ---
Problems reprioritized. Patient report given, questions answered & plan of care reviewed with STEPHENIE Lagos. Care plan followed, medications administered as ordered. Safety measures in place, bed alarm on. Patient supposed to DC to [facility] Neuro floor today. Safety measures in place, bed in low and locked position. Call light and personal items within reach. Will continue to monitor for remainder of shift.
--- NOTE | 2020-06-13 07:50 | NUR ---
Reported called to Kamron
--- NOTE | 2020-06-13 09:56 | NUR ---
Problems reprioritized. Patient report given, questions answered & plan of care reviewed with Rochelle CASIANO from [facility].
[2020-06-18 17:22] LABS: CRYPTOCOCCUS ANTIGEN, CSF Negative (Negative)
== END 2020-06-13 07:10 | disposition short-term general hospital (02) | DRG 872 ==
LOC: ER 01:32 → ED HOLD 05:33 → PCU 3S 11:10
PROVIDERS: ADMIT Family Medicine; ATTEND Family Medicine
PROC: BW211ZZ Computerized Tomography (CT Scan) of Abdomen and Pelvis using Low Osmolar Contrast (ICD-10-PCS; 2020-06-03)
PROC: 009U3ZZ Drainage of Spinal Canal, Percutaneous Approach (ICD-10-PCS; principal; 2020-06-06)
PROC: B01B1ZZ Fluoroscopy of Spinal Cord using Low Osmolar Contrast (ICD-10-PCS; 2020-06-06)
PROC: BW281ZZ Computerized Tomography (CT Scan) of Head using Low Osmolar Contrast (ICD-10-PCS; 2020-06-11)
PROC: B3251ZZ Computerized Tomography (CT Scan) of Bilateral Common Carotid Arteries using Low Osmolar Contrast (ICD-10-PCS; 2020-06-11)
PROC: B32G1ZZ Computerized Tomography (CT Scan) of Bilateral Vertebral Arteries using Low Osmolar Contrast (ICD-10-PCS; 2020-06-11)
PROC: B3281ZZ Computerized Tomography (CT Scan) of Bilateral Internal Carotid Arteries using Low Osmolar Contrast (ICD-10-PCS; 2020-06-11)
DX: A41.9 Sepsis, unspecified organism (principal); S06.5X0A Traumatic subdural hemorrhage without loss of consciousness, initial encounter; S06.6X0A Traumatic subarachnoid hemorrhage without loss of consciousness, initial encounter; E87.2 Acidosis; K57.92 Diverticulitis of intestine, part unspecified, without perforation or abscess without bleeding; Y92.230 Patient room in hospital as the place of occurrence of the external cause; W18.39XA Other fall on same level, initial encounter; E87.6 Hypokalemia; K21.9 Gastro-esophageal reflux disease without esophagitis; R73.9 Hyperglycemia, unspecified; R80.9 Proteinuria, unspecified; R81 Glycosuria; E78.5 Hyperlipidemia, unspecified; J45.909 Unspecified asthma, uncomplicated; E03.9 Hypothyroidism, unspecified; Z20.828 Contact with and (suspected) exposure to other viral communicable diseases; G89.4 Chronic pain syndrome; I10 Essential (primary) hypertension; M79.7 Fibromyalgia; Z76.5 Malingerer [conscious simulation]; Z78.9 Other specified health status; Z79.51 Long term (current) use of inhaled steroids; Z79.890 Hormone replacement therapy; Z85.3 Personal history of malignant neoplasm of breast; Z90.710 Acquired absence of both cervix and uterus; Z88.8 Allergy status to other drugs, medicaments and biological substances; Z91.040 Latex allergy status; Y93.89 Activity, other specified; Y99.8 Other external cause status; Z79.899 Other long term (current) drug therapy
CPT/HCPCS: 36415; 62328; 70450; 70496; 70551; 74018; 74176; 74177; 76937; 77003; 80053; 80202; 81001; 82945; 83605; 83690; 83735; 84132; 84145; 84157; 84443; 85025; 85610; 85730; 86703; 87015; 87040; 87070; 87081; 87305; 87635; 87899; 89051; 94640; 94760; 96365; 97110; 97116; 97161; 97530; 99285; G0378; J0290; J0360; J0696; J1170; J1644; J2270; J2405; J2543; J3370; J3475; J3480; J7030; J7626; Q0163; Q9967

== ENCOUNTER 2020-07-15 12:31 | Emergency (ER) | payer MEDICARE, OTHER ==
[~2020-07-15] VITALS: Ht 165.1 cm; Wt 61.5 kg
[~2020-07-15 12:31] MED LIST changes: +HYDR-3965 PO; +NAPR-56 PO; +VALS160T30 PO
[2020-07-15] MEDS ORDERED: HYDROcodone/acetaminophen 10/325mg tab PO ONE (14:25)
[2020-07-15] MEDS ORDERED: normal saline 1000ml 1,000 ML IV ONE (14:25)
[2020-07-15 15:17] LABS: BASOPHILS % (AUTO) 0.5 % (0-1); EOSINOPHILS # (AUTO) 0.2 X10'3 (0-0.9); EOSINOPHILS % (AUTO) 3.2 % (0-6); HEMATOCRIT 35.8 % (35.0-45.0); HEMOGLOBIN 11.8 g/dl (12.0-16.0); LYMPHOCYTES # (AUTO) 1.5 X10'3 (1.1-4.8); LYMPHOCYTES % (AUTO) 30.3 % (21-51); MEAN CORPUSCULAR HEMOGLOBIN 31.7 PG (27.0-31.0); MEAN CORPUSCULAR HGB CONC 32.9 g/dL (33.0-36.5); MEAN CORPUSCULAR VOLUME 96.3 FL (78-98); MEAN PLATELET VOLUME 8.4 FL (7.4-10.4); MONOCYTES # (AUTO) 0.5 X10'3 (0-0.9); MONOCYTES % (AUTO) 9.4 % (2-12); NEUTROPHILS # (AUTO) 2.9 X10'3 (1.8-7.7); NEUTROPHILS % (AUTO) 56.6 % (42-75); PLATELET COUNT 271 X10'3 (140-440); RED BLOOD COUNT 3.72 X10'6 (4.20-5.60); RED CELL DISTRIBUTION WIDTH 14.3 % (11.5-14.5); WHITE BLOOD COUNT 5.1 X10'3 (4.5-11.0)
[2020-07-15 15:32] LABS: ALANINE AMINOTRANSFERASE 17 U/L (12-78); ALBUMIN 3.3 G/DL (3.4-5.0); ALBUMIN/GLOBULIN RATIO 0.9 (1.1-1.5); ALKALINE PHOSPHATASE 64 IU/L (46-116); ANION GAP 10 (8-16); ASPARTATE AMINO TRANSFERASE 14 U/L (10-37); BILIRUBIN,TOTAL 0.3 MG/DL (0.1-1.0); BLOOD UREA NITROGEN 12 MG/DL (7-18); CALCIUM 9.6 MG/DL (8.5-10.1); CHLORIDE 104 MMOL/L (99-107); CREATININE 0.63 MG/DL (0.40-0.90); GLUCOSE 118 MG/DL (70-104); POTASSIUM 4.4 MMOL/L (3.5-5.1); SODIUM 140 MMOL/L (135-145); TOTAL CARBON DIOXIDE 26.5 MMOL/L (24-32); TOTAL PROTEIN 7.1 G/DL (6.4-8.2); eGFR > 90 ML/MIN
[2020-07-15] MEDS ORDERED: iohexol 300mg/ml 100ml inj. ONE (15:56)
[2020-07-15 16:15] LABS: CLARITY,URINE CLEAR (Clear); COLOR,URINE YELLOW (Yellow); GLUCOSE, URINE NEGATIVE (Neg); KETONES,URINE NEGATIVE (Neg); LEUKOCYTE ESTERASE ,URINE TRACE (Neg); NITRITES, URINE NEGATIVE (Neg); OCCULT BLOOD,URINE NEGATIVE (Neg); PROTEIN,URINE NEGATIVE (Neg); UROBILINOGEN,URINE 0.2 E.U/dL (0.2-1.0)
[2020-07-15 16:21] LABS: UA COLLECTION TYPE CLN CATCH MIDSTREAM
[2020-07-15 16:23] LABS: SQUAMOUS EPITHELIAL CELL,UR MODERATE /LPF (FEW); TRANSITIONAL EPI CELLS,URINE MODERATE /HPF
[2020-07-15 16:25] LABS: YEAST FEW /HPF (NEGATIVE)
[2020-07-15 16:26] LABS: HYALINE CASTS 0-3 /LPF (NEGATIVE)
[2020-07-15 16:27] LABS: BACTERIA,URINE NONE SEEN /HPF (Neg); RBC,URINE NONE SEEN /HPF (0-2); WBC,URINE 0-4 /HPF (0-4)
[2020-07-15 17:29] VITALS: BP 105/68
== END 2020-07-15 17:35 | disposition home or self-care (01) ==
LOC: ER 12:32
DX: R51.9 Headache, unspecified (principal); I95.9 Hypotension, unspecified; R53.1 Weakness; R10.30 Lower abdominal pain, unspecified; I10 Essential (primary) hypertension; K21.9 Gastro-esophageal reflux disease without esophagitis; J45.909 Unspecified asthma, uncomplicated; E03.9 Hypothyroidism, unspecified; G89.29 Other chronic pain; Z86.73 Personal history of transient ischemic attack (TIA), and cerebral infarction without residual deficits; Z85.3 Personal history of malignant neoplasm of breast; Z90.710 Acquired absence of both cervix and uterus; Z98.890 Other specified postprocedural states; Z88.1 Allergy status to other antibiotic agents; Z88.8 Allergy status to other drugs, medicaments and biological substances; Z91.040 Latex allergy status; Z79.899 Other long term (current) drug therapy
CPT/HCPCS: 36415; 70450; 74177; 80053; 81001; 85025; 85610; 87088; 96360; 99285; J7030; Q9967